=== PATIENT | female | born 1955 | race Caucasian/White ===

== ENCOUNTER → 2016-07-29 | Outpatient (CLI) | payer BC, OTHER ==
[~2016-07-29] MED LIST: FISH5CAP PO; GABA-279 PO; GABA-282 PO; IBUP800T23 PO; IMIT100T PO; LIPI10TA PO; MULT1TAB9 PO; PERC5TAB6 PO; TRAM50TA2 PO; VITA50TA43 PO
--- NOTE | 2016-08-03 18:33 | SLEEPCENT ---
DATE OF PROCEDURE: 07/29/2016 ORDERED BY: Chela Best INTERPRETATION: Nocturnal polysomnography was performed due to concern for the obstructive sleep apnea syndrome in this patient with a history of excessive daytime somnolence. 8 hours and 44 minutes of data were reviewed. There were 415 minutes of sleep identified. Sleep latency was short at 6.5 minutes. Rapid eye movement (REM) latency was short at 57 minutes. Sleep architecture showed fragmentation from respiratory events. Overall sleep efficiency improved after interventions to 81%. The patient's electrocardiogram (EKG) showed a sinus rhythm with an average heart rate of 54 beats per minute. Electroencephalogram (EEG) showed mild coarsening in background, otherwise normal wave forms for wake and sleep. There were 98 respiratory events identified of 10 seconds in duration or greater for an apnea-hypopnea index of 14.2. The events were associated with oxygen desaturations into the 70's. Having clearly establish the presence of obstructive sleep apnea syndrome, testing was stopped shortly after midnight for the application of pressure therapy. The patient was fit with a ResMed Quattro full face mask of extra small size. 4 cm of water pressure were applied to the circuit and the lights were extinguished. Throughout the remaining portion of resting pressure titration was preformed to an optimal pressure of +8, CPAP tolerance was good. The remaining measures of sleep physiology were normal. IMPRESSION: Obstructive sleep apnea syndrome (G47.33). Apnea-hypopnea index of 14.2. RECOMMENDATIONS: Nightly use of pressure therapy 8 cm of water.
== END ==
LOC: M SLEEP 20:00
PROVIDERS: ATTEND Nurse Practitioner Adult Health
DX: G47.30 Sleep apnea, unspecified (principal)

== ENCOUNTER → 2016-09-18 | Outpatient (CLI) | payer BC, OTHER ==
[~2016-09-18] MED LIST changes: +IBUP1TAB7 PO; -IBUP800T23 PO; +PERC5TAB12 PO; -PERC5TAB6 PO
[2016-09-18 18:34] LABS: ANION GAP 7 MEQ/L (8-16); BLOOD UREA NITROGEN 19 MG/DL (7-18); CALCIUM LEVEL 8.8 MG/DL (8.5-10.1); CARBON DIOXIDE LEVEL 31 MEQ/L (21-32); CHLORIDE LEVEL 106 MEQ/L (98-107); CHOLESTEROL LEVEL 175 MG/DL (<200); CREATININE FOR GFR 0.82 MG/DL (0.55-1.02); GLOMERULAR FILTRATION RATE > 60.0 (>51); GLUCOSE, FASTING 103 MG/DL (70-105); POTASSIUM SERUM 4.2 MEQ/L (3.5-5.1); SODIUM LEVEL 144 MEQ/L (136-145); TRIGLYCERIDES LEVEL 127 MG/DL (<150)
== END ==
LOC: M ADAMS 08:50
PROVIDERS: ATTEND Internal Medicine
DX: I87.2 Venous insufficiency (chronic) (peripheral) (principal); I10 Essential (primary) hypertension

== ENCOUNTER → 2016-10-07 | Outpatient (CLI) | payer BC, OTHER ==
--- NOTE | 2016-10-07 13:12 | REPMRS ---
Patient History The patient states she has not had a clinical breast exam in over a year. Patient is postmenopausal and has history of basal cell skin cancer at age 50. Family history of colorectal cancer in maternal grandfather at age 50 or over, breast cancer in 2 paternal aunts at age 50 or over, breast cancer in maternal grandmother at age 50 or over, and colorectal cancer in paternal uncle at age 50 or over. Benign excisional biopsy of the left breast, 1970. Digital Woman Screen Mammo: October 07, 2016 - Exam #: [id number] Bilateral CC and MLO view(s) were taken. Technologist: Sil Da Silva, Technologist Prior study comparison: November 19, 2014, digital woman screen mammo performed at [facility] to [facility]. April 08, 2013, digital woman screen mammo performed at [facility] to [facility]. FINDINGS: The breast tissue is heterogeneously dense. This may lower the sensitivity of mammography. There has been no change in the appearance of the mammogram from the prior studies. There is a moderate amount of residual fibroglandular tissue which is fairly symmetric. There is no interval development of dominant mass, areas of architectural distortion, or clustered microcalcification typical of malignancy. ASSESSMENT: BI-RADS/ACR category 1 mammogram. Negative. Recommendation Routine screening mammogram in 1 year (for women over age 40). This mammogram was interpreted with the aid of an FDA-approved computer-aided dectection system. Electronically Signed By: Lupillo Hadley MD 10/07/16 [id number]
== END ==
LOC: M WHC 11:17
PROVIDERS: ATTEND Internal Medicine
DX: Z12.31 Encounter for screening mammogram for malignant neoplasm of breast (principal)

== ENCOUNTER → 2017-01-24 | Outpatient (CLI) | payer BC, OTHER ==
--- NOTE | 2017-01-24 09:05 | REP ---
MAXILLOFACIAL CT WITHOUT CONTRAST: HISTORY: Chronic maxillary sinusitis. The sinuses are clear. The osteomeatal units are patent. The middle and inferior nasal turbinates are partially paradoxical. There is melani bullosa of the right middle nasal turbinate. There is mild deviation of the nasal septum to the left. A defect is present in the inferior nasal septum. The cribriform plate, medial vera of the orbits, and optic canals are intact. The carotid canals form a segment of the posterolateral vera of the sphenoid sinus. IMPRESSION: There is no acute or chronic sinusitis. Signed by Mark Hills MD 01/24/2017 09:08 A
== END ==
LOC: M RAD 08:13
PROVIDERS: ATTEND Specialist
DX: J32.0 Chronic maxillary sinusitis (principal)

== ENCOUNTER → 2017-07-02 | Outpatient (CLI) | payer BC, OTHER ==
[2017-07-02 17:48] LABS: BASO % 0.6 % (0.0-1.0); EOS # 0.1 10^3/uL (0.0-0.50); HEMATOCRIT 41.9 % (36.0-47.0); HEMOGLOBIN 13.5 g/dl (12.0-15.5); IMMATURE GRANULOCYTE % 0.2 % (0-3.0); LYMPH # 1.5 10^3/uL (1.5-4.5); LYMPH % 30.7 % (24.0-44.0); MEAN CORPUSCULAR HEMOGLOBIN 29.6 pg (27.0-33.0); MEAN CORPUSCULAR HGB CONC 32.2 g/dl (32.0-36.5); MEAN CORPUSCULAR VOLUME 91.9 fl (80.0-96.0); MONO # 0.6 10^3/uL (0.0-0.8); MONO % 11.2 % (0.0-5.0); NEUTROPHILS # 2.8 10^3/uL (1.8-7.7); NEUTROPHILS % 55.3 % (36.0-66.0); PLATELET COUNT, AUTOMATED 250 10^3/uL (150-450); RED BLOOD COUNT 4.56 10^6/uL (4.00-5.40); RED CELL DISTRIBUTION WIDTH 13.2 % (11.5-14.5)
[2017-07-02 18:09] LABS: ALBUMIN/GLOBULIN RATIO 1.29 (1.00-1.93); ALKALINE PHOSPHATASE 81 U/L (45-117); ALT/SGPT 36 U/L (12-78); ANION GAP 6 MEQ/L (8-16); AST/SGOT 24 U/L (7-37); BLOOD UREA NITROGEN 21 MG/DL (7-18); CALCIUM LEVEL 8.8 MG/DL (8.8-10.2); CARBON DIOXIDE LEVEL 29 MEQ/L (21-32); CHLORIDE LEVEL 110 MEQ/L (98-107); CHOLESTEROL LEVEL 183 MG/DL (<200); CHOLESTEROL RISK RATIO 3.734 (<5); CREATININE FOR GFR 0.82 MG/DL (0.55-1.30); GLOMERULAR FILTRATION RATE > 60.0 (>45); GLUCOSE, FASTING 113 MG/DL (70-100); HDL CHOLESTEROL 49 MG/DL (>40); LDL CHOLESTEROL 112.6 MG/DL (<100); NON-HDL-C 134 MG/DL; POTASSIUM SERUM 4.6 MEQ/L (3.5-5.1); SODIUM LEVEL 145 MEQ/L (136-145); TOTAL PROTEIN 7.1 GM/DL (6.4-8.2); TRIGLYCERIDES LEVEL 107 MG/DL (<150)
== END ==
LOC: M ADAMS 08:11
DX: I10 Essential (primary) hypertension (principal); E78.5 Hyperlipidemia, unspecified
CPT/HCPCS: 80053

== ENCOUNTER → 2017-09-11 | Outpatient (REF) | payer BC, OTHER ==
[2017-09-11 23:07] LABS: CHLAMYDIA DNA AMPLIFICATION NEGATIVE (NEGATIVE); GC DNA AMPLIFICATION NEGATIVE (NEGATIVE)
== END ==
LOC: M SFHCLERA 18:25
DX: N30.00 Acute cystitis without hematuria (principal)
CPT/HCPCS: 87086

== ENCOUNTER → 2017-12-09 | Outpatient (REF) | payer BC, OTHER ==
[2017-12-09 20:32] LABS: APPEARANCE, URINE HAZY (CLEAR); BACTERIA, URINE AUTO 1+ (NEGATIVE); BILIRUBIN, URINE AUTO NEGATIVE (NEGATIVE); BLOOD, URINE BLOOD 2+ (NEGATIVE); COLOR, URINE YELLOW (YELLOW); GLUCOSE, URINE (UA) AUTO NEGATIVE (NEGATIVE); KETONE, URINE AUTO NEGATIVE (NEGATIVE); LEUKOCYTE ESTERASE, URINE AUTO 1+ (NEGATIVE); MUCUS, URINE SMALL (NEGATIVE); NITRITE, URINE AUTO NEGATIVE (NEGATIVE); PROTEIN, URINE AUTO 1+ mg/dL (NEGATIVE); RBC, URINE AUTO 141 /HPF (0-3); SPECIFIC GRAVITY URINE AUTO 1.016 (1.002-1.035); SQUAMOUS EPITHELIAL CELL UR AU 1 /HPF (0-6); TRANSITIONAL EPITHELIAL AUTO 1 /HPF; UROBILINOGEN, URINE AUTO 0.2 mg/dL (0.0-2.0); WBC, URINE AUTO 63 /HPF (0-3)
== END ==
LOC: M LAB REF 16:33
DX: N39.0 Urinary tract infection, site not specified (principal)
CPT/HCPCS: 81001

== ENCOUNTER → 2017-12-20 | Outpatient (CLI) | payer BC, OTHER | LOC: M WHC 14:59 | DX: Z12.31 Encounter for screening mammogram for malignant neoplasm of breast (principal); N60.31 Fibrosclerosis of right breast; N60.32 Fibrosclerosis of left breast | CPT/HCPCS: 77067 ==

== ENCOUNTER → 2018-07-18 | Outpatient (REF) | payer BC, OTHER ==
[~2018-07-18] MED LIST changes: +GABA-1171 PO; -GABA-279 PO; -GABA-282 PO; +GABA-843 PO
[2018-07-18 21:25] LABS: APPEARANCE, URINE CLOUDY (CLEAR); BACTERIA, URINE AUTO NEGATIVE (NEGATIVE); BILIRUBIN, URINE AUTO NEGATIVE (NEGATIVE); BLOOD, URINE BLOOD 3+ (NEGATIVE); CALCIUM OXALATE CRYSTALS SMALL; COLOR, URINE AMBER (YELLOW); GLUCOSE, URINE (UA) AUTO NEGATIVE (NEGATIVE); KETONE, URINE AUTO NEGATIVE (NEGATIVE); LEUKOCYTE ESTERASE, URINE AUTO 2+ (NEGATIVE); MUCUS, URINE SMALL (NEGATIVE); NITRITE, URINE AUTO NEGATIVE (NEGATIVE); PROTEIN, URINE AUTO 2+ mg/dL (NEGATIVE); RBC, URINE AUTO TNTC /HPF (0-3); SPECIFIC GRAVITY URINE AUTO 1.026 (1.002-1.035); SQUAMOUS EPITHELIAL CELL UR AU 0 /HPF (0-6); UROBILINOGEN, URINE AUTO 0.2 mg/dL (0.0-2.0); WBC, URINE AUTO TNTC /HPF (0-3)
== END ==
LOC: M LAB REF 10:48
PROVIDERS: ATTEND Physician Assistant
DX: N39.0 Urinary tract infection, site not specified (principal)

== ENCOUNTER 2018-11-12 07:38 | Day surgery (SDC) | payer BC, OTHER ==
[~2018-11-12] VITALS: Ht 170.2 cm; Wt 88.6 kg
[~2018-11-12 07:38] MED LIST changes: +CO Q10CA PO; +LOSA50TA88 PO; +MAGN400C2 PO; +PHEN15CA PO; +TIZA2CAP PO; +VIAC1CHW PO
[2018-11-12] MEDS: NS 1,000 ML IV ONE (08:30)
[2018-11-12] MEDS ORDERED: LIDOCAINE 2% INJ 100 MG/5 ML SDV (FOR ANES.) As Ordered ONE (08:56)
[2018-11-12] MEDS ORDERED: PROPOFOL 200 MG/20 ML VIAL As Ordered ONE (08:56)
--- NOTE | 2018-11-12 09:24 | ROOR ---
Patient Name: Vibha Hernandez Procedure Date: 11/12/2018 8:58 AM Date of : 1955 Age: 63 Room: [facility] Gender: Female Note Status: Finalized Procedure: Total Colonoscopy to Cecum + Biopsy Polypectomy + Hemoclip Indications: Screening for colorectal malignant neoplasm, Last colonoscopy 10 years ago Providers: Jacoby Viveros MD Referring MD: Niurka Miles DO Requesting Provider: Medicines: Monitored Anesthesia Care Complications: No immediate complications. Procedure: Pre-Anesthesia Assessment: - The heart rate, respiratory rate, oxygen saturations, blood pressure, adequacy of pulmonary ventilation, and response to care were monitored throughout the procedure. The Colonoscope was introduced through the anus and advanced to the cecum, identified by appendiceal orifice and ileocecal valve. The colonoscopy was performed without difficulty. The patient tolerated the procedure well. The quality of the bowel preparation was excellent. Findings: The perianal and digital rectal examinations were normal. Non-bleeding internal hemorrhoids were found during retroflexion. The hemorrhoids were small and Grade I (internal hemorrhoids that do not prolapse). Multiple small and large-mouthed diverticula were found in the recto-sigmoid colon, sigmoid colon and descending colon. A diminutive polyp was found in the cecum. The polyp was sessile. The polyp was removed with a jumbo cold forceps. Resection and retrieval were complete. A small polyp was found in the ascending colon. The polyp was sessile. The polyp was removed with a jumbo cold forceps. Resection and retrieval were complete. To prevent bleeding after the polypectomy, one hemostatic clip was successfully placed (MR conditional). There was no bleeding at the end of the procedure. The exam was otherwise without abnormality on direct and retroflexion views. Impression: - Non-bleeding internal hemorrhoids. - Diverticulosis in the recto-sigmoid colon, in the sigmoid colon and in the descending colon. - One diminutive polyp in the cecum, removed with a jumbo cold forceps. Resected and retrieved. - One small polyp in the ascending colon, removed with a jumbo cold forceps. Resected and retrieved. Clip (MR conditional) was placed. - The examination was otherwise normal on direct and retroflexion views. - The exam was otherwise normal to the cecum. Recommendation: - Patient has a contact number available for emergencies. The signs and symptoms of potential delayed complications were discussed with the patient. Return to normal activities tomorrow. Written discharge instructions were provided to the patient. - High fiber diet. - Discharge patient to home. - Continue present medications. - Await pathology results. - Telephone GI clinic for pathology results in 1 week. - Repeat colonoscopy for surveillance based on pathology results. - Return to referring physician. - The findings and recommendations were discussed with the patient's family. Jacoby Viveros MD Jacoby Viveros MD 11/12/2018 9:24:13 AM Electronically signed by Jacoby Viveros MD Number of Addenda: 0 Note Initiated On: 11/12/2018 8:58 AM Estimated Blood Loss: Estimated blood loss: none.
[2018-11-12 09:46] VITALS: BP 130/75
== END 2018-11-12 09:48 | disposition home or self-care (01) ==
LOC: M OPP 07:38
PROVIDERS: ATTEND Internal Medicine Gastroenterology
DX: Z12.11 Encounter for screening for malignant neoplasm of colon (principal); K64.0 First degree hemorrhoids; D12.0 Benign neoplasm of cecum; D12.2 Benign neoplasm of ascending colon; K57.30 Diverticulosis of large intestine without perforation or abscess without bleeding; Z79.899 Other long term (current) drug therapy; Z88.2 Allergy status to sulfonamides

== ENCOUNTER → 2018-12-13 | Outpatient (CLI) | payer BC, OTHER ==
--- NOTE | 2018-12-18 15:10 | DEXA ---
AP SPINE L1 - L4 1.396 1.6 3.0 LT FEMUR TOTAL 0.999 -0.1 1.0 LT NECK 0.942 -0.7 0.6 RT FEMUR TOTAL 1.066 0.5 1.5 RT NECK 0.914 -0.9 0.4 TOTAL BODY TOTAL L1-L3 1.372 1.5 2.9 COMMENTS: Normal bone densitometry of the spine and hips. FOLLOW-UP: Recommendation for the next bone density exam: 5 years. DELANEYD
== END ==
LOC: M WHC 15:44
PROVIDERS: ATTEND Internal Medicine
DX: M85.80 Other specified disorders of bone density and structure, unspecified site (principal)

== ENCOUNTER → 2019-03-02 | Outpatient (CLI) | payer BC, OTHER ==
[2019-03-02 13:17] LABS: BLOOD UREA NITROGEN 18 MG/DL (7-18); CALCIUM LEVEL 8.8 MG/DL (8.8-10.2); CARBON DIOXIDE LEVEL 32 MEQ/L (21-32); CHLORIDE LEVEL 107 MEQ/L (98-107); CREATININE FOR GFR 0.75 MG/DL (0.55-1.30); GLOMERULAR FILTRATION RATE > 60.0 (>45); GLUCOSE, FASTING 89 MG/DL (70-100); POTASSIUM SERUM 4.3 MEQ/L (3.5-5.1); SODIUM LEVEL 144 MEQ/L (136-145)
[2019-03-04 13:08] LABS: TOTAL 25(OH) VITAMIN D 29.5 NG/ML (30.0-100.0)
== END ==
LOC: M ADAMS 08:58
PROVIDERS: ATTEND Internal Medicine
DX: I10 Essential (primary) hypertension (principal); E55.9 Vitamin D deficiency, unspecified

== ENCOUNTER → 2019-04-02 | Outpatient (REF) | payer BC, OTHER ==
[2019-04-02 19:27] LABS: BLOOD UREA NITROGEN 19 MG/DL (7-18); CREATININE FOR GFR 0.79 MG/DL (0.55-1.30); GLOMERULAR FILTRATION RATE > 60.0 (>45)
== END ==
LOC: M LABDRWAD 18:54
PROVIDERS: ATTEND Pain Medicine Interventional Pain Medicine
DX: Z01.812 Encounter for preprocedural laboratory examination (principal)

== ENCOUNTER → 2019-07-12 | Outpatient (CLI) | payer BC, OTHER ==
--- NOTE | 2019-07-12 15:49 | REP ---
REASON: Back pain, followup. COMPARISON: Limited three view exam of 08/07/2018. Three views of the spine were obtained in the same fashion as the prior exam. The posterior fixator seen at the L4-5 level is unchanged. There is no change in appearance of the facet joints. There is no change in vertebral body height or alignment. IMPRESSION: No change. Electronically Signed by Tyson Wells DO 07/12/2019 03:50 P
== END ==
LOC: M RAD 15:06
PROVIDERS: ATTEND Physician Assistant
DX: M48.062 Spinal stenosis, lumbar region with neurogenic claudication (principal)

== ENCOUNTER → 2019-09-01 | Outpatient (CLI) | payer BC, OTHER ==
[2019-09-01 09:04] LABS: BASO % 0.4 % (0.0-1.0); EOS # 0.1 10^3/uL (0.0-0.5); EOS % 1.2 % (0.0-3.0); HEMATOCRIT 39.1 % (36.0-47.0); HEMOGLOBIN 12.6 g/dl (12.0-15.5); LYMPH # 1.4 10^3/uL (1.5-5.0); LYMPH % 26.9 % (24.0-44.0); MEAN CORPUSCULAR HEMOGLOBIN 30.1 pg (27.0-33.0); MEAN CORPUSCULAR HGB CONC 32.2 g/dl (32.0-36.5); MEAN CORPUSCULAR VOLUME 93.5 fl (80.0-96.0); MONO # 0.6 10^3/uL (0.0-0.8); MONO % 11.7 % (0.0-5.0); PLATELET COUNT, AUTOMATED 252 10^3/uL (150-450); RED BLOOD COUNT 4.18 10^6/uL (4.00-5.40); WHITE BLOOD COUNT 5.1 10^3/uL (4.0-10.0)
[2019-09-01 09:34] LABS: ALBUMIN 3.6 GM/DL (3.2-5.2); ALT/SGPT 28 U/L (12-78); BILIRUBIN,TOTAL 1.3 MG/DL (0.2-1.0); BLOOD UREA NITROGEN 21 MG/DL (7-18); CALCIUM LEVEL 8.8 MG/DL (8.8-10.2); CARBON DIOXIDE LEVEL 31 MEQ/L (21-32); CHLORIDE LEVEL 108 MEQ/L (98-107); CHOLESTEROL LEVEL 176 MG/DL (<200); CREATININE FOR GFR 0.86 MG/DL (0.55-1.30); GLOMERULAR FILTRATION RATE > 60.0 (>45); GLUCOSE, FASTING 104 MG/DL (70-100); HDL CHOLESTEROL 50 MG/DL (>40); LDL CHOLESTEROL 111 MG/DL (<100); NON-HDL-C 126 MG/DL; POTASSIUM SERUM 4.1 MEQ/L (3.5-5.1); SODIUM LEVEL 143 MEQ/L (136-145); TOTAL PROTEIN 6.8 GM/DL (6.4-8.2); TRIGLYCERIDES LEVEL 77 MG/DL (<150)
== END ==
LOC: M LAB 08:34
PROVIDERS: ATTEND Internal Medicine
DX: I10 Essential (primary) hypertension (principal); E78.5 Hyperlipidemia, unspecified

== ENCOUNTER → 2019-10-10 | Outpatient (CLI) | payer BC, OTHER ==
[~2019-10-10] MED LIST changes: +ISOVUE-300 61% 50ML VIAL As Ordered ONE; +LIDOCAINE 1% MDV 20ML VIAL As Ordered ONE; +TRIAMCINOLONE ACETONIDE SUSP 40 MG/ML VIAL (J3301) As Ordered ONE
--- NOTE | 2019-11-13 09:37 | REP ---
LEFT HIP INJECTION The procedure was performed under the direct supervision of Dr. Pena. The benefits and risks including, but not limited to pain, infection, bleeding, and anaphylaxis were explained to the patient and informed consent was obtained. The left femoral neck was localized using fluoroscopic guidance. The skin was prepped and draped in a sterile fashion. 1% Lidocaine was used as a local anesthetic. Using fluoroscopic guidance, a 22-gauge spinal needle was inserted and advanced to the femoral neck. 0.5 mL of Isovue-300 was injected to verify placement. 3 mL of a solution containing 2 mL of 1% Lidocaine and 1 mL of Kenalog 40 mg was injected. The needle was then removed. The patient tolerated the procedure well and there were no immediate complications. Less than 6 seconds of fluoroscopy time was utilized for this procedure. SERENA
== END ==
LOC: M RADPRO 14:26
PROVIDERS: ATTEND Orthopaedic Surgery Sports Medicine
DX: M16.12 Unilateral primary osteoarthritis, left hip (principal)
CPT/HCPCS: 20610; 77002; J3301; Q9967

== ENCOUNTER → 2019-10-17 | Outpatient (REF) | payer BC, OTHER ==
[~2019-10-17] MED LIST changes: -ISOVUE-300 61% 50ML VIAL As Ordered ONE; -LIDOCAINE 1% MDV 20ML VIAL As Ordered ONE; -TRIAMCINOLONE ACETONIDE SUSP 40 MG/ML VIAL (J3301) As Ordered ONE
== END ==
LOC: M LAB REF 09:47
PROVIDERS: ATTEND Surgery
DX: D17.23 Benign lipomatous neoplasm of skin and subcutaneous tissue of right leg (principal)

== ENCOUNTER → 2020-01-07 | Outpatient (REF) | payer BC, OTHER | LOC: M SFHCWAGY 17:07 | PROVIDERS: ATTEND Nurse Practitioner Family | DX: Z12.4 Encounter for screening for malignant neoplasm of cervix (principal) | CPT/HCPCS: 87624; G0123 ==

== ENCOUNTER → 2020-01-07 | Outpatient (CLI) | payer BC, OTHER ==
--- NOTE | 2020-01-07 17:07 | REPMRS ---
Patient History The patient states she had a clinical breast exam in 01/09 Family history of breast cancer at age 50 or over in maternal grandmother, colorectal cancer at age 50 or over in maternal grandfather, breast cancer at age 50 or over in paternal aunt, breast cancer at age 50 or over in paternal aunt, colorectal cancer at age 50 or over in paternal uncle, breast cancer at age 50 or over in maternal aunt. Benign excisional biopsy of the left breast, 1970. No Hormone Replacement Therapy 3D TOMOSYNTHESIS WAS PERFORMED. [email or web address] breast density b. Digital Woman Screen Mammo: January 07, 2020 - Exam #: [id number] Bilateral CC and MLO view(s) were taken. Technologist: Gabrielle Bauer, Technologist Prior study comparison: December 20, 2017, bilateral digital woman screen mammo performed at [facility]. October 07, 2016, bilateral digital woman screen mammo performed at [facility]. FINDINGS: The breast tissue is heterogeneously dense. This may lower the sensitivity of mammography. There has been no change in the appearance of the mammogram from the prior studies. There is a moderate amount of residual fibroglandular tissue which is fairly symmetric. There is no interval development of dominant mass, areas of architectural distortion, or clustered microcalcification typical of malignancy. Assessment: BI-RADS/ACR category 1 mammogram. Negative Mammogram. Recommendation Routine screening mammogram in 1 year (for women over age 40). This mammogram was interpreted with the aid of an FDA-approved computer-aided dectection system. THE LIFETIME RISK OF BREAST CANCER IS 22.0%, THEREFORE SUPPLEMENTAL SCREENING MRI OF THE BREASTS IS RECOMMENDED IN 6 MONTHS. Electronically Signed By: Lupillo Hadley MD 01/07/20 [id number]
== END ==
LOC: M WHC 14:31
PROVIDERS: ATTEND Nurse Practitioner Family
DX: Z12.31 Encounter for screening mammogram for malignant neoplasm of breast (principal)

== ENCOUNTER → 2020-03-07 | Outpatient (CLI) | payer BC, OTHER ==
[~2020-03-07] MED LIST changes: +GABA-282 PO; -GABA-843 PO
[2020-03-07 09:24] LABS: BASO % 0.5 % (0.0-1.0); EOS # 0.1 10^3/uL (0.0-0.5); EOS % 1.1 % (0.0-3.0); HEMATOCRIT 43.2 % (36.0-47.0); HEMOGLOBIN 13.3 g/dl (12.0-15.5); LYMPH # 1.4 10^3/uL (1.5-5.0); LYMPH % 24.9 % (24.0-44.0); MEAN CORPUSCULAR HGB CONC 30.8 g/dl (32.0-36.5); MEAN CORPUSCULAR VOLUME 94.1 fl (80.0-96.0); MONO # 0.6 10^3/uL (0.0-0.8); MONO % 9.9 % (0.0-5.0); NEUTROPHILS # 3.5 10^3/uL (1.5-8.5); NEUTROPHILS % 63.4 % (36.0-66.0); PLATELET COUNT, AUTOMATED 263 10^3/uL (150-450); RED BLOOD COUNT 4.59 10^6/uL (4.00-5.40); WHITE BLOOD COUNT 5.6 10^3/uL (4.0-10.0)
[2020-03-07 10:00] LABS: ALBUMIN 3.8 GM/DL (3.2-5.2); ALT/SGPT 34 U/L (12-78); BILIRUBIN,TOTAL 1.3 MG/DL (0.2-1.0); BLOOD UREA NITROGEN 20 MG/DL (7-18); CALCIUM LEVEL 8.6 MG/DL (8.8-10.2); CARBON DIOXIDE LEVEL 29 MEQ/L (21-32); CHLORIDE LEVEL 109 MEQ/L (98-107); CREATININE FOR GFR 0.82 MG/DL (0.55-1.30); GLOMERULAR FILTRATION RATE > 60.0 (>45); GLUCOSE, FASTING 109 MG/DL (70-100); POTASSIUM SERUM 4.4 MEQ/L (3.5-5.1); SODIUM LEVEL 143 MEQ/L (136-145); TOTAL PROTEIN 6.8 GM/DL (6.4-8.2)
== END ==
LOC: M LAB 08:52
PROVIDERS: ATTEND Internal Medicine
DX: D50.9 Iron deficiency anemia, unspecified (principal); I10 Essential (primary) hypertension

== ENCOUNTER → 2020-05-19 | Outpatient (REF) | payer BC, OTHER ==
[2020-05-19 21:41] LABS: APPEARANCE, URINE HAZY (CLEAR); BACTERIA, URINE AUTO NEGATIVE (NEGATIVE); BILIRUBIN, URINE AUTO NEGATIVE (NEGATIVE); BLOOD, URINE BLOOD NEGATIVE (NEGATIVE); COLOR, URINE YELLOW (YELLOW); GLUCOSE, URINE (UA) AUTO NEGATIVE (NEGATIVE); KETONE, URINE AUTO NEGATIVE (NEGATIVE); LEUKOCYTE ESTERASE, URINE AUTO 3+ (NEGATIVE); MUCUS, URINE SMALL (NEGATIVE); NITRITE, URINE AUTO NEGATIVE (NEGATIVE); PROTEIN, URINE AUTO NEGATIVE (NEGATIVE); RBC, URINE AUTO 2 /HPF (0-3); SPECIFIC GRAVITY URINE AUTO 1.024 (1.002-1.035); SQUAMOUS EPITHELIAL CELL UR AU 2 /HPF (0-6); UROBILINOGEN, URINE AUTO 0.2 mg/dL (0.0-2.0); WBC, URINE AUTO 19 /HPF (0-3)
== END ==
LOC: M LAB REF 21:08
PROVIDERS: ATTEND Physician Assistant
DX: N39.0 Urinary tract infection, site not specified (principal)

== ENCOUNTER → 2020-09-08 | Outpatient (REF) | payer BC, OTHER | LOC: M LAB REF 19:02 | PROVIDERS: ATTEND Internal Medicine | DX: M25.50 Pain in unspecified joint (principal) ==

== ENCOUNTER → 2020-11-14 | Outpatient (REF) | payer BC, OTHER ==
[2020-11-14 19:30] LABS: APPEARANCE, URINE CLEAR (CLEAR); BACTERIA, URINE AUTO NEGATIVE (NEGATIVE); BILIRUBIN, URINE AUTO NEGATIVE (NEGATIVE); BLOOD, URINE BLOOD NEGATIVE (NEGATIVE); COLOR, URINE YELLOW (YELLOW); GLUCOSE, URINE (UA) AUTO NEGATIVE (NEGATIVE); KETONE, URINE AUTO NEGATIVE (NEGATIVE); LEUKOCYTE ESTERASE, URINE AUTO NEGATIVE (NEGATIVE); MUCUS, URINE SMALL (NEGATIVE); NITRITE, URINE AUTO NEGATIVE (NEGATIVE); PROTEIN, URINE AUTO NEGATIVE (NEGATIVE); RBC, URINE AUTO 1 /HPF (0-3); SPECIFIC GRAVITY URINE AUTO 1.015 (1.002-1.035); SQUAMOUS EPITHELIAL CELL UR AU 0 /HPF (0-6); UROBILINOGEN, URINE AUTO 0.2 mg/dL (0.0-2.0); WBC, URINE AUTO 2 /HPF (0-3)
== END ==
LOC: M LAB REF 19:14
PROVIDERS: ATTEND Physician Assistant Medical
DX: R30.0 Dysuria (principal)

== ENCOUNTER 2020-12-07 12:14 | Emergency (ER) | payer BC, OTHER ==
[~2020-12-07] VITALS: Ht 170.2 cm; Wt 95.0 kg
[2020-12-07] MEDS ORDERED: HYDROMORPHONE HCL 0.5 MG/ 0.5 ML SYRINGE (J1170 PER 1) IV ONE (12:50)
[2020-12-07] MEDS ORDERED: NS 1,000 ML IV SCH (13:45)
[2020-12-07] MEDS ORDERED: propofoL 200 MG/20 ML VIAL IV.PROC PRN (13:45)
[2020-12-07] MEDS ORDERED: KETAMINE HCL 200 MG/20 ML VIAL IV ONE (13:45)
[2020-12-07] MEDS ORDERED: ONDANSETRON 4MG/2ML VIAL IV ONE (13:50)
--- OUTSIDE RECORDS SUMMARY | 2020-12-07 13:50 | CCD ---
Author Author [facility] Organization [facility] Address Unknown Phone Unavailable Care Team Providers Care Financial Services Professional Name Role Phone Pecorella, T Jose PA Unavailable Unavailable Pecorella, T Jose PA Unavailable Unavailable Pecorella, T Jose PA Unavailable Unavailable Pecorella, T Jose PA Unavailable Unavailable Pecorella, T Jose PA Unavailable Unavailable Pecorella, T Jose PA Unavailable Unavailable Pecorella, T Jose PA Unavailable Unavailable Pecorella, T Jose PA Unavailable Unavailable Pecorella, T Jose PA Unavailable Unavailable Pecorella, T Jose PA Unavailable Unavailable Pecorella, T Jose PA Unavailable Unavailable Pecorella, T Jose PA Unavailable Unavailable Pecorella, T Jose PA Unavailable Unavailable Pecorella, T Jose PA Unavailable Unavailable Pecorella, T Jose PA Unavailable Unavailable Pecorella, T Jose PA Unavailable Unavailable Pecorella, T Jose PA Unavailable Unavailable Pecorella, T Jose PA Unavailable Unavailable Pecorella, T Jose PA Unavailable Unavailable Pecorella, T Jose PA Unavailable Unavailable Pecorella, T Jose PA Unavailable Unavailable TYRONE BEASLEY MD Unavailable Unavailable TYRONE BEASLEY MD Unavailable Unavailable TYRONE BEASLEY MD Unavailable Unavailable BEASLEY, TYRONE MD Unavailable Unavailable BEASLEY, TYRONE MD Unavailable Unavailable BEASLEY, TYRONE MD Unavailable Unavailable BEASLEY, TYRONE MD Unavailable Unavailable BEASLEY, TYRONE MD Unavailable Unavailable BEASLEY, TYRONE MD Unavailable Unavailable BEASLEY, TYRONE MD Unavailable Unavailable BEASLEY, TYRONE MD Unavailable Unavailable BEASLEY, TYRONE MD Unavailable Unavailable BEASLEY, TYRONE MD Unavailable Unavailable BEASLEY, TYRONE MD Unavailable Unavailable BESALEY, TYRONE MD Unavailable Unavailable BEASLEY, TYRONE MD Unavailable Unavailable BEASLEY, TYRONE MD Unavailable Unavailable BEASLEY, TYRONE MD Unavailable Unavailable BEASLEY, TYRONE MD Unavailable Unavailable BEASLEY, TYRONE MD Unavailable Unavailable BEASLEY, TYRONE MD Unavailable Unavailable BEASLEY, TYRONE MD Unavailable Unavailable BEASLEY, TYRONE MD Unavailable Unavailable BEASLEY, TYRONE MD Unavailable Unavailable BEASLEY, TYRONE MD Unavailable Unavailable BEASLEY, TYRONE MD Unavailable Unavailable BEASLEY, TYRONE MD Unavailable Unavailable BEASLEY, TYRONE MD Unavailable Unavailable BEASLEY, TYRONE MD Unavailable Unavailable BEASLEY, TYRONE MD Unavailable Unavailable BEASLEY, TYRONE MD Unavailable Unavailable BEASLEY, TYRONE MD Unavailable Unavailable BEASLEY, TYRONE MD Unavailable Unavailable BEASLEY, TYORNE MD Unavailable Unavailable BEASLEY, TYRONE MD Unavailable Unavailable BEASLEY, TYRONE MD Unavailable Unavailable BEASLEY, TYRONE MD Unavailable Unavailable BEASLEY, TYRONE MD Unavailable Unavailable BEASLEY, TYRONE MD Unavailable Unavailable BEASLEY, TYRONE MD Unavailable Unavailable BEASLEY, TYRONE MD Unavailable Unavailable BEASLEY, TYRONE MD Unavailable Unavailable BEASLEY, TYRONE MD Unavailable Unavailable BEASLEY, TYRONE MD Unavailable Unavailable BEASLEY, TYRONE MD Unavailable Unavailable BEASLEY, TYRONE MD Unavailable Unavailable BEASLEY, TYRONE MD Unavailable Unavailable BEASLEY, TYRONE MD Unavailable Unavailable BEASLEY, TYRONE MD Unavailable Unavailable BEASLEY, TYRONE MD Unavailable Unavailable BEASLEY, TYRONE MD Unavailable Unavailable BEASLEY, TYRONE MD Unavailable Unavailable BEASLEY, TYRONE MD Unavailable Unavailable BEASLEY, TYRONE MD Unavailable Unavailable BEASLEY, TYRONE MD Unavailable Unavailable BEASLEY, TYRONE MD Unavailable Unavailable BEASLEY, TYRONE MD Unavailable Unavailable BEASLEY, TYRONE MD Unavailable Unavailable BEASLEY, TYRONE MD Unavailable Unavailable BEASLEY, TYRONE MD Unavailable Unavailable BEASLEY, TYRONE MD Unavailable Unavailable BEASLEY, TYRONE MD Unavailable Unavailable BEASLEY, TYRONE MD Unavailable Unavailable BEASLEY, TYRONE MD Unavailable Unavailable BEASLEY, TYRONE MD Unavailable Unavailable BEASLEY, TYRONE MD Unavailable Unavailable BEASLEY, TYRONE MD Unavailable Unavailable BEASLEY, TYRNOE MD Unavailable Unavailable TYRONE BEASLEY MD Unavailable Unavailable TYRONE BEASLEY MD Unavailable Unavailable Mollison, Tamir Null MD Unavailable Unavailable Mollison, Tamir Null MD Unavailable Unavailable Mollison, Tamir Null MD Unavailable Unavailable Mollison, Tamir Null MD Unavailable Unavailable Mollison, Tamir Null MD Unavailable Unavailable Mollison, Tamir Null MD Unavailable Unavailable Mollison, Tamir Null MD Unavailable Unavailable Mollison, Tamir Null MD Unavailable Unavailable Mollison, Tamir Null MD Unavailable Unavailable Mollison, Tamir Null MD Unavailable Unavailable Mollison, Tamir Null MD Unavailable Unavailable Mollison, Tamir Null MD Unavailable Unavailable Mollison, Tamir Null MD Unavailable Unavailable Mollison, Tamir Null MD Unavailable Unavailable Mollison, Tamir Null MD Unavailable Unavailable Mollison, Tamir Null MD Unavailable Unavailable Mollison, Tamir Null MD Unavailable Unavailable Mollison, Tamir Null MD Unavailable Unavailable Mollison, Tamir Null MD Unavailable Unavailable Mollison, Tamir Null MD Unavailable Unavailable Mollison, Tamir Null MD Unavailable Unavailable Mollison, Tamir Null MD Unavailable Unavailable Mollison, Tamir Null MD Unavailable Unavailable Mollison, Tamir Null MD Unavailable Unavailable Mollison, Tamir Null MD Unavailable Unavailable Mollison, Tamir Null MD Unavailable Unavailable Mollison, Tamir Null MD Unavailable Unavailable Mollison, Tamir Null MD Unavailable Unavailable Mollison, Tamir Null MD Unavailable Unavailable Mollison, Tamir Null MD Unavailable Unavailable Jd, Niurka DO Unavailable Unavailable Jd, Niurka DO Unavailable Unavailable Jd, Niurka DO Unavailable Unavailable Jd, Niurka DO Unavailable Unavailable Jd, Niurka DO Unavailable Unavailable Jd, Niurka DO Unavailable Unavailable Jd, Niurka DO Unavailable Unavailable Jd, Niurka DO Unavailable Unavailable Jd, Niurka DO Unavailable Unavailable Jd, Niurka DO Unavailable Unavailable Jd, Niurka DO Unavailable Unavailable Jd, Niurka DO Unavailable Unavailable Jd, Niurka DO Unavailable Unavailable Jd, Niurka DO Unavailable Unavailable Jd, Niurka DO Unavailable Unavailable Jd, Niurka DO Unavailable Unavailable Jd, Niurka DO Unavailable Unavailable Jd, Niurka DO Unavailable Unavailable Jd, Niurka DO Unavailable Unavailable Jd, Niurka DO Unavailable Unavailable Jd, Niurka DO Unavailable Unavailable Jd, Niurka DO Unavailable Unavailable Jd, Niurka DO Unavailable Unavailable Jd, Niurka DO Unavailable Unavailable Jd, Niurka DO Unavailable Unavailable Jd, Niurka DO Unavailable Unavailable Jd, Niurka DO Unavailable Unavailable Jd, Niurka DO Unavailable Unavailable Jd, Niurka DO Unavailable Unavailable Jd, Niurka DO Unavailable Unavailable Jd, Niurka DO Unavailable Unavailable Jd, Niurka DO Unavailable Unavailable Jd, Niurka DO Unavailable Unavailable Jd, Niurka DO Unavailable Unavailable Jd, Niurka DO Unavailable Unavailable Jd, Niurka DO Unavailable Unavailable Jd, Niurka DO Unavailable Unavailable Jd, Niurka DO Unavailable Unavailable Jd, Niurka DO Unavailable Unavailable Jd, Niurka DO Unavailable Unavailable Jd, Niurka DO Unavailable Unavailable Jd, Niurka DO Unavailable Unavailable Jd, Niurka DO Unavailable Unavailable Jd, Niurka DO Unavailable Unavailable Jd, Niurka DO Unavailable Unavailable Jd, Niurka DO Unavailable Unavailable Jd, Niurka DO Unavailable Unavailable Jd, Niurka DO Unavailable Unavailable Jd, Niurka DO Unavailable Unavailable Jd, Niurka DO Unavailable Unavailable Jd, Niurka DO Unavailable Unavailable Jd, Niurka DO Unavailable Unavailable Jd, Niurka DO Unavailable Unavailable Jd, Niurka DO Unavailable Unavailable Jd, Niurka DO Unavailable Unavailable Jd, Niurka DO Unavailable Unavailable Jd, Niurka DO Unavailable Unavailable Jd, Niurka DO Unavailable Unavailable Jd, Niurka DO Unavailable Unavailable Jd, Niurka DO Unavailable Unavailable Jd, Niurka DO Unavailable Unavailable Jd, Niurka DO Unavailable Unavailable Jd, Niurka DO Unavailable Unavailable Jd, Niurka DO Unavailable Unavailable Jd, Niurka DO Unavailable Unavailable Jd, Niurka DO Unavailable Unavailable Jd, Niurka DO Unavailable Unavailable Jd, Niurka DO Unavailable Unavailable Jd, Niurka DO Unavailable Unavailable Jd, Niurka DO Unavailable Unavailable Jd, Niurka DO Unavailable Unavailable Jd, Niurka DO Unavailable Unavailable Jd, Niurka DO Unavailable Unavailable Jd, Niurka DO Unavailable Unavailable Demarche, J Elliott PA Unavailable Unavailable Demarche, J Elliott PA Unavailable Unavailable Demarche, J Elliott PA Unavailable Unavailable Demarche, J Elliott PA Unavailable Unavailable Demarche, J Elliott PA Unavailable Unavailable Demarche, J Elliott PA Unavailable Unavailable Demarche, J Elliott PA Unavailable Unavailable Demarche, J Elliott PA Unavailable Unavailable Demarche, J Elliott PA Unavailable Unavailable Demarche, J Elliott PA Unavailable Unavailable Demarche, J Elliott PA Unavailable Unavailable Demarche, J Elliott PA Unavailable Unavailable Demarche, J Elliott PA Unavailable Unavailable Demarche, J Elliott PA Unavailable Unavailable Demarche, J Elliott PA Unavailable Unavailable Demarche, J Elilott PA Unavailable Unavailable Demarche, J Elliott PA Unavailable Unavailable Demarche, J Elliott PA Unavailable Unavailable Demarche, J Elliott PA Unavailable Unavailable Demarche, J Elliott PA Unavailable Unavailable Demarche, J Elliott PA Unavailable Unavailable Demarche, J Elliott PA Unavailable Unavailable Demarche, J Elliott PA Unavailable Unavailable Demarche, J Elliott PA Unavailable Unavailable Demarche, J Elliott PA Unavailable Unavailable Demarche, J Elliott PA Unavailable Unavailable Demarche, J Elliott PA Unavailable Unavailable Demarche, J Elliott PA Unavailable Unavailable Demarche, J Elliott PA Unavailable Unavailable Demarche, J Elliott PA Unavailable Unavailable Demarche, J Elliott PA Unavailable Unavailable Fan, M Deepti PA Unavailable Unavailable Fan, M Deepti PA Unavailable Unavailable Fan, M Deepti PA Unavailable Unavailable Fan, M Deepti PA Unavailable Unavailable Fan, M Deepti PA Unavailable Unavailable Fan, M Deepti PA Unavailable Unavailable Fan, M Deepti PA Unavailable Unavailable Fan, M Deepti PA Unavailable Unavailable Fan, M Deepti PA Unavailable Unavailable Fan, M Deepti PA Unavailable Unavailable Fan, M Deepti PA Unavailable Unavailable Fan, M Deepti PA Unavailable Unavailable Fan, M Deepti PA Unavailable Unavailable Fan, M Deepti PA Unavailable Unavailable Fan, M Deepti PA Unavailable Unavailable Fan, M Deepti PA Unavailable Unavailable Fan, M Deepti PA Unavailable Unavailable Fan, M Deepti PA Unavailable Unavailable Fan, M Deepti PA Unavailable Unavailable Fan, M Deepti PA Unavailable Unavailable Fan, M Deepti PA Unavailable Unavailable Fan, M Deepti PA Unavailable Unavailable Fan, M Deepti PA Unavailable Unavailable Fan, M Deepti PA Unavailable Unavailable Fan, M Deepti PA Unavailable Unavailable Fan, M Deepti PA Unavailable Unavailable Fan, M Deepti PA Unavailable Unavailable Fan, M Deepti PA Unavailable Unavailable Afn, M Deepti PA Unavailable Unavailable Fan, M Deepti PA Unavailable Unavailable Fan, M Deepti PA Unavailable Unavailable Fan, M Deepti PA Unavailable Unavailable Fan, M Deepti PA Unavailable Unavailable Fan, M Deepti PA Unavailable Unavailable Fan, M Deepti PA Unavailable Unavailable Fan, M Deepti PA Unavailable Unavailable Fan, M Deepti PA Unavailable Unavailable Fan, M Deepti PA Unavailable Unavailable Fan, M Deepti PA Unavailable Unavailable Fan, M Deepti PA Unavailable Unavailable Fan, M Deepti PA Unavailable Unavailable Fan, M Deepti PA Unavailable Unavailable Fan, M Deepti PA Unavailable Unavailable Fan, M Deepti PA Unavailable Unavailable Fan, M Deepti PA Unavailable Unavailable Fan, M Deepti PA Unavailable Unavailable Ar Fan Unavailable Unavailable Ar Fan Unavailable Unavailable Ar Fan PA Unavailable Unavailable Jd, Niurka DO Unavailable Unavailable Jd, Niurka DO Unavailable Unavailable Jd, Niurka DO Unavailable Unavailable Jd, Niurka DO Unavailable Unavailable Jd, Niurka DO Unavailable Unavailable Jd, Niurka DO Unavailable Unavailable Jd, Niurka DO Unavailable Unavailable Jd, Niurka DO Unavailable Unavailable Jd, Niurka DO Unavailable Unavailable Jd, Niurka DO Unavailable Unavailable Jd, Niurka DO Unavailable Unavailable Jd, Niurka DO Unavailable Unavailable Jd, Niurka DO Unavailable Unavailable Jd, Niurka DO Unavailable Unavailable Jd, Niurka DO Unavailable Unavailable Jd, Niurka DO Unavailable Unavailable Jd, Niurka DO Unavailable Unavailable Jd, Niurka DO Unavailable Unavailable Jd, Niurka DO Unavailable Unavailable Jd, Niurka DO Unavailable Unavailable Jd, Niurka DO Unavailable Unavailable Jd, Niurka DO Unavailable Unavailable Jd, Niurka DO Unavailable Unavailable Jd, Niurka DO Unavailable Unavailable Jd, Niurka DO Unavailable Unavailable Jd, Niurka DO Unavailable Unavailable Jd, Niurka DO Unavailable Unavailable Jd, Niurka DO Unavailable Unavailable Jd, Niurka DO Unavailable Unavailable Jd, Niurka DO Unavailable Unavailable Jd, Niurka DO Unavailable Unavailable Jd, Niurka DO Unavailable Unavailable Jd, Niurka DO Unavailable Unavailable Jd, Niurka DO Unavailable Unavailable Jd, Niurka DO Unavailable Unavailable Jd, Niurka DO Unavailable Unavailable Jd, Niurka DO Unavailable Unavailable Jd, Niurka DO Unavailable Unavailable Jd, Niurka DO Unavailable Unavailable Jd, Niurka DO Unavailable Unavailable Jd, Niurka DO Unavailable Unavailable Jd, Niurka DO Unavailable Unavailable Jd, Niurka DO Unavailable Unavailable Jd, Niurka DO Unavailable Unavailable Jd, Niurka DO Unavailable Unavailable Jd, Niurka DO Unavailable Unavailable Jd, Niurka DO Unavailable Unavailable Jd, Niurka DO Unavailable Unavailable Jd, Niurka DO Unavailable Unavailable Jd, Niurka DO Unavailable Unavailable Jd, Niurka DO Unavailable Unavailable Jd, Niurka DO Unavailable Unavailable Jd, Niurka DO Unavailable Unavailable Jd, Niurka DO Unavailable Unavailable Jd, Niurka DO Unavailable Unavailable Jd, Niurka DO Unavailable Unavailable Jd, Niurka DO Unavailable Unavailable Jd, Niurka DO Unavailable Unavailable Jd, Niurka DO Unavailable Unavailable Jd, Niurka DO Unavailable Unavailable Jd, Niurka DO Unavailable Unavailable Jd, Niurka DO Unavailable Unavailable Jd, Niurka DO Unavailable Unavailable Jd, Niurka DO Unavailable Unavailable Jd, Niurka DO Unavailable Unavailable Jd, Niurka DO Unavailable Unavailable Jd, Niurka DO Unavailable Unavailable Jd, Niurka DO Unavailable Unavailable Jd, Niurka DO Unavailable Unavailable Jd, Niurka DO Unavailable Unavailable Jd, Niurka DO Unavailable Unavailable Jd, Niurka DO Unavailable Unavailable Jd, Niurka DO Unavailable Unavailable Jd, Niurka DO Unavailable Unavailable Jumalon, M Kathy MANAGER ADMINISTRATIVE SERVICES Unavailable Unavailable Jumalon, M Kathy MANAGER ADMINISTRATIVE SERVICES Unavailable Unavailable Jumalon, M Kathy MANAGER ADMINISTRATIVE SERVICES Unavailable Unavailable Jumalon, M Kathy MANAGER ADMINISTRATIVE SERVICES Unavailable Unavailable Jumalon, M Kathy MANAGER ADMINISTRATIVE SERVICES Unavailable Unavailable Jumalon, M Kathy MANAGER ADMINISTRATIVE SERVICES Unavailable Unavailable Jumalon, M Kathy MANAGER ADMINISTRATIVE SERVICES Unavailable Unavailable Jumalon, M Kathy MANAGER ADMINISTRATIVE SERVICES Unavailable Unavailable Jumalon, M Kathy MANAGER ADMINISTRATIVE SERVICES Unavailable Unavailable Jumalon, M Kathy MANAGER ADMINISTRATIVE SERVICES Unavailable Unavailable Jumalon, M Kathy MANAGER ADMINISTRATIVE SERVICES Unavailable Unavailable Jumalon, M Kathy MANAGER ADMINISTRATIVE SERVICES Unavailable Unavailable Jumalon, M Kathy MANAGER ADMINISTRATIVE SERVICES Unavailable Unavailable Jumalon, M Kathy MANAGER ADMINISTRATIVE SERVICES Unavailable Unavailable Jumalon, M Kathy MANAGER ADMINISTRATIVE SERVICES Unavailable Unavailable Jumalon, M Kathy MANAGER ADMINISTRATIVE SERVICES Unavailable Unavailable Jumalon, M Kathy MANAGER ADMINISTRATIVE SERVICES Unavailable Unavailable Jumalon, M Kathy MANAGER ADMINISTRATIVE SERVICES Unavailable Unavailable Jumalon, M Kathy MANAGER ADMINISTRATIVE SERVICES Unavailable Unavailable Jumalon, M Kathy MANAGER ADMINISTRATIVE SERVICES Unavailable Unavailable Jumalon, M Kathy MANAGER ADMINISTRATIVE SERVICES Unavailable Unavailable Jumalon, M Kathy MANAGER ADMINISTRATIVE SERVICES Unavailable Unavailable Jumalon, M Kathy MANAGER ADMINISTRATIVE SERVICES Unavailable Unavailable Jumalon, M Kathy MANAGER ADMINISTRATIVE SERVICES Unavailable Unavailable Jumalon, M Kathy MANAGER ADMINISTRATIVE SERVICES Unavailable Unavailable Jumalon, M Kathy MANAGER ADMINISTRATIVE SERVICES Unavailable Unavailable Jumalon, M Kathy MANAGER ADMINISTRATIVE SERVICES Unavailable Unavailable Jumalon, M Kathy MANAGER ADMINISTRATIVE SERVICES Unavailable Unavailable Jumalon, M Kathy MANAGER ADMINISTRATIVE SERVICES Unavailable Unavailable Jumalon, M Kathy MANAGER ADMINISTRATIVE SERVICES Unavailable Unavailable Lily Cox MD Unavailable Unavailable Lily Cox MD Unavailable Unavailable ChilesLily MD Unavailable Unavailable ChilesLily MD Unavailable Unavailable ChilesLily MD Unavailable Unavailable ChilesLily MD Unavailable Unavailable ChilesLily MD Unavailable Unavailable ChilesLily MD Unavailable Unavailable ChilesLily MD Unavailable Unavailable ChilesLily MD Unavailable Unavailable ChilesLily MD Unavailable Unavailable ChilesLily MD Unavailable Unavailable ChilesLily MD Unavailable Unavailable ChilesLily MD Unavailable Unavailable ChilesLily MD Unavailable Unavailable ChilesLily MD Unavailable Unavailable ChilesLily MD Unavailable Unavailable ChilesLily MD Unavailable Unavailable ChilesLily MD Unavailable Unavailable ChilesLily MD Unavailable Unavailable ChilesLily MD Unavailable Unavailable ChilesLily MD Unavailable Unavailable ChilesLily MD Unavailable Unavailable ChilesLily MD Unavailable Unavailable ChilesLily MD Unavailable Unavailable ChilesLily MD Unavailable Unavailable ChilesLily MD Unavailable Unavailable ChilesLily MD Unavailable Unavailable ChilesLily MD Unavailable Unavailable ChilesLily MD Unavailable Unavailable ChilesLily MD Unavailable Unavailable ChilesLily MD Unavailable Unavailable ChilesLily MD Unavailable Unavailable ChilesLily MD Unavailable Unavailable ChilesLily MD Unavailable Unavailable ChilesLily MD Unavailable Unavailable ChilesLily MD Unavailable Unavailable ChilesLily MD Unavailable Unavailable ChilesLily MD Unavailable Unavailable ChilesLily MD Unavailable Unavailable ChilesLily MD Unavailable Unavailable ChilesLily MD Unavailable Unavailable ChilesLily MD Unavailable Unavailable ChilesLily MD Unavailable Unavailable ChilesLily MD Unavailable Unavailable ChilesLily MD Unavailable Unavailable ChilesLily MD Unavailable Unavailable ChilesLily MD Unavailable Unavailable ChilesLily MD Unavailable Unavailable ChilesLily MD Unavailable Unavailable ChilesLily MD Unavailable Unavailable ChilesLily MD Unavailable Unavailable ChilesLily MD Unavailable Unavailable ChilesLily MD Unavailable Unavailable ChilesLily MD Unavailable Unavailable ChilesLily MD Unavailable Unavailable ChilesLily MD Unavailable Unavailable ChilesLily MD Unavailable Unavailable Chiles, Lily Costa MD Unavailable Unavailable Chiles, Lily Costa MD Unavailable Unavailable Chiles, Lily Costa MD Unavailable Unavailable Chiles, Lily Costa MD Unavailable Unavailable Chiles, Lily Costa MD Unavailable Unavailable Chiles, Lily Costa MD Unavailable Unavailable Chiles, Lily Costa MD Unavailable Unavailable Chiles, Lily Costa MD Unavailable Unavailable Chiles, Lily Costa MD Unavailable Unavailable Chiles, Lily Costa MD Unavailable Unavailable Chiles, Lily oCsta MD Unavailable Unavailable Chiles, Lily Costa MD Unavailable Unavailable Chiles, Lily Costa MD Unavailable Unavailable Chiles, Lily Costa MD Unavailable Unavailable Chiles, Lily Costa MD Unavailable Unavailable Chiles, Lily Costa MD Unavailable Unavailable Chiles, Lily Costa MD Unavailable Unavailable Chiles, Lily Costa MD Unavailable Unavailable Chiles, Lily Costa MD Unavailable Unavailable Chiles, Lily Costa MD Unavailable Unavailable Chiles, Lily Costa MD Unavailable Unavailable Chiles, Lily Costa MD Unavailable Unavailable Chiles, Lily Costa MD Unavailable Unavailable Chiles, Lily Costa MD Unavailable Unavailable Chiles, Lily Costa MD Unavailable Unavailable Chiles, Lily Costa MD Unavailable Unavailable Akers, A Phyl MANAGER ADMINISTRATIVE SERVICES-BC Unavailable Unavailable Akers, A Phyl MANAGER ADMINISTRATIVE SERVICES-BC Unavailable Unavailable Akers, A Phyl MANAGER ADMINISTRATIVE SERVICES-BC Unavailable Unavailable Akers, A Phyl MANAGER ADMINISTRATIVE SERVICES-BC Unavailable Unavailable Akers, A Phyl MANAGER ADMINISTRATIVE SERVICES-BC Unavailable Unavailable Akers, A Phyl MANAGER ADMINISTRATIVE SERVICES-BC Unavailable Unavailable Akers, A Phyl MANAGER ADMINISTRATIVE SERVICES-BC Unavailable Unavailable Akers, A Phyl MANAGER ADMINISTRATIVE SERVICES-BC Unavailable Unavailable Akers, A Phyl MANAGER ADMINISTRATIVE SERVICES-BC Unavailable Unavailable Akers, A Phyl MANAGER ADMINISTRATIVE SERVICES-BC Unavailable Unavailable Akers, A Phyl MANAGER ADMINISTRATIVE SERVICES-BC Unavailable Unavailable Akers, A Phyl MANAGER ADMINISTRATIVE SERVICES-BC Unavailable Unavailable Akers, A Phyl MANAGER ADMINISTRATIVE SERVICES-BC Unavailable Unavailable Akers, A Phyl MANAGER ADMINISTRATIVE SERVICES-BC Unavailable Unavailable Akers, A Phyl MANAGER ADMINISTRATIVE SERVICES-BC Unavailable Unavailable Akers, A Phyl MANAGER ADMINISTRATIVE SERVICES-BC Unavailable Unavailable Akers, A Phyl MANAGER ADMINISTRATIVE SERVICES-BC Unavailable Unavailable Akers, A Phyl MANAGER ADMINISTRATIVE SERVICES-BC Unavailable Unavailable Akers, A Phyl MANAGER ADMINISTRATIVE SERVICES-BC Unavailable Unavailable Akers, A Phyl MANAGER ADMINISTRATIVE SERVICES-BC Unavailable Unavailable Akers, A Phyl MANAGER ADMINISTRATIVE SERVICES-BC Unavailable Unavailable Akers, A Phyl MANAGER ADMINISTRATIVE SERVICES-BC Unavailable Unavailable Akers, A Phyl MANAGER ADMINISTRATIVE SERVICES-BC Unavailable Unavailable Akers, A Phyl MANAGER ADMINISTRATIVE SERVICES-BC Unavailable Unavailable Akers, A Phyl MANAGER ADMINISTRATIVE SERVICES-BC Unavailable Unavailable Akers, A Phyl MANAGER ADMINISTRATIVE SERVICES-BC Unavailable Unavailable Akers, A Phyl MANAGER ADMINISTRATIVE SERVICES-BC Unavailable Unavailable Akers, A Phyl MANAGER ADMINISTRATIVE SERVICES-BC Unavailable Unavailable Akers, A Phyl MANAGER ADMINISTRATIVE SERVICES-BC Unavailable Unavailable Akers, A Phyl MANAGER ADMINISTRATIVE SERVICES-BC Unavailable Unavailable Akers, A Phyl MANAGER ADMINISTRATIVE SERVICES-BC Unavailable Unavailable Akers, A Phyl MANAGER ADMINISTRATIVE SERVICES-BC Unavailable Unavailable GARCÍA, M SD PA Unavailable Unavailable GARCÍA, M SD PA Unavailable Unavailable GARCÍA, M SD PA Unavailable Unavailable GARCÍA, M SD PA Unavailable Unavailable GARCÍA, M SD PA Unavailable Unavailable GARCÍA, M SD PA Unavailable Unavailable GARCÍA, M SD PA Unavailable Unavailable GARCÍA, M SD PA Unavailable Unavailable GARCÍA, M SD PA Unavailable Unavailable GARCÍA, M DS PA Unavailable Unavailable GARCÍA, M SD PA Unavailable Unavailable GARCÍA, M SD PA Unavailable Unavailable GARCÍA, M SD PA Unavailable Unavailable GARCÍA, M SD PA Unavailable Unavailable GARCÍA, M SD PA Unavailable Unavailable GARCÍA, M SD PA Unavailable Unavailable GARCÍA, M SD PA Unavailable Unavailable GARCÍA, M SD PA Unavailable Unavailable GARCÍA, M SD PA Unavailable Unavailable GARCÍA, M SD PA Unavailable Unavailable GARCÍA, M SD PA Unavailable Unavailable GARCÍA, M SD PA Unavailable Unavailable GARCÍA, M SD PA Unavailable Unavailable GARCÍA, M SD PA Unavailable Unavailable GARCÍA, M SD PA Unavailable Unavailable GARCÍA, M SD PA Unavailable Unavailable GARCÍA, M SD PA Unavailable Unavailable GARCÍA, M SD PA Unavailable Unavailable GARCÍA, M SD PA Unavailable Unavailable GARCÍA, M SD PA Unavailable Unavailable GARCÍA, M SD PA Unavailable Unavailable GARCÍA, M SD PA Unavailable Unavailable GARCÍA, M SD PA Unavailable Unavailable GARCÍA, M SD PA Unavailable Unavailable GARCÍA, M SD PA Unavailable Unavailable RIDGE, M MITA PA Unavailable Unavailable RIDGE, M MITA PA Unavailable Unavailable RIDGE, M MITA PA Unavailable Unavailable RIDGE, M MITA PA Unavailable Unavailable RIDGE, M MITA PA Unavailable Unavailable RIDGE, M MITA PA Unavailable Unavailable RIDGE, M MITA PA Unavailable Unavailable RIDGE, M MITA PA Unavailable Unavailable RIDGE, M MITA PA Unavailable Unavailable RIDGE, M MITA PA Unavailable Unavailable RIDGE, M MITA PA Unavailable Unavailable RIDGE, M MITA PA Unavailable Unavailable RIDGE, M MITA PA Unavailable Unavailable RIDGE, M MITA PA Unavailable Unavailable RIDGE, M MITA PA Unavailable Unavailable RIDGE, M MITA PA Unavailable Unavailable RIDGE, M MITA PA Unavailable Unavailable RIDGE, M MITA PA Unavailable Unavailable RIDGE, M MITA PA Unavailable Unavailable RIDGE, M MITA PA Unavailable Unavailable RIDGE, M MITA PA Unavailable Unavailable RIDGE, M MITA PA Unavailable Unavailable RIDGE, M MITA PA Unavailable Unavailable RIDGE, M MITA PA Unavailable Unavailable Feola, T Melissa PA Unavailable Unavailable Feola, T Melissa PA Unavailable Unavailable Feola, T Melissa PA Unavailable Unavailable Feola, T Melissa PA Unavailable Unavailable Feola, T Mleissa PA Unavailable Unavailable Feola, T Melissa PA Unavailable Unavailable Feola, T Melissa PA Unavailable Unavailable Feola, T Melissa PA Unavailable Unavailable Feola, T Melissa PA Unavailable Unavailable Feola, T Melissa PA Unavailable Unavailable Feola, T Melissa PA Unavailable Unavailable Feola, T Melissa PA Unavailable Unavailable Feola, T Melissa PA Unavailable Unavailable Feola, T Melissa PA Unavailable Unavailable Feola, T Melissa PA Unavailable Unavailable Feola, T Melissa PA Unavailable Unavailable Feola, T Melissa PA Unavailable Unavailable Feola, T Melissa PA Unavailable Unavailable Feola, T Melissa PA Unavailable Unavailable Feola, T Melissa PA Unavailable Unavailable Feola, T Melissa PA Unavailable Unavailable Feola, T Melissa PA Unavailable Unavailable Feola, T Melissa PA Unavailable Unavailable Feola, T Melissa PA Unavailable Unavailable Feola, T Melissa PA Unavailable Unavailable Feola, T Melissa PA Unavailable Unavailable Feola, T Melissa PA Unavailable Unavailable Feola, T Melissa PA Unavailable Unavailable Feola, T Melissa PA Unavailable Unavailable Feola, T Melissa PA Unavailable Unavailable Feola, T Melissa PA Unavailable Unavailable Feola, T Melissa PA Unavailable Unavailable Feola, T Melissa PA Unavailable Unavailable Feola, T Melissa PA Unavailable Unavailable Feola, T Melissa PA Unavailable Unavailable Feola, T Melissa PA Unavailable Unavailable Feola, T Melissa PA Unavailable Unavailable Feola, T Melissa PA Unavailable Unavailable Feola, T Melissa PA Unavailable Unavailable Feola, T Melissa PA Unavailable Unavailable Feola, T Melissa PA Unavailable Unavailable Chidi Perez MD Unavailable Unavailable Chidi Perez MD Unavailable Unavailable Chidi Perez MD Unavailable Unavailable Chidi Perez MD Unavailable Unavailable Chidi Perez MD Unavailable Unavailable Chidi Perez MD Unavailable Unavailable Chidi Perez MD Unavailable Unavailable Chidi Perez MD Unavailable Unavailable Chidi Perez MD Unavailable Unavailable Chidi Perez MD Unavailable Unavailable Chidi Perez MD Unavailable Unavailable Chidi Perez MD Unavailable Unavailable Chidi Perez MD Unavailable Unavailable Chidi Perez MD Unavailable Unavailable Chidi Perez MD Unavailable Unavailable Chidi Perez MD Unavailable Unavailable Chidi Perez MD Unavailable Unavailable Chidi Perez MD Unavailable Unavailable Chidi Perez MD Unavailable Unavailable Chidi Perez MD Unavailable Unavailable Chidi Perez MD Unavailable Unavailable Chidi Perez MD Unavailable Unavailable Chidi Perez MD Unavailable Unavailable Chidi Perez MD Unavailable Unavailable Chidi Perez MD Unavailable Unavailable Chidi Perez MD Unavailable Unavailable Chidi Perez MD Unavailable Unavailable Chidi Perez MD Unavailable Unavailable Chidi Perez MD Unavailable Unavailable Chidi Perez MD Unavailable Unavailable Chidi Perez MD Unavailable Unavailable Chidi Perez MD Unavailable Unavailable Elvira PHAM MD Unavailable Unavailable Elvira PHAM MD Unavailable Unavailable Elvira PHAM MD Unavailable Unavailable Elvira PHAM MD Unavailable Unavailable Elvira PHAM MD Unavailable Unavailable Elvira PHAM MD Unavailable Unavailable Elvira PHAM MD Unavailable Unavailable Elvira PHAM MD Unavailable Unavailable Elvira PHAM MD Unavailable Unavailable Elvira PHAM MD Unavailable Unavailable Elvira PHAM MD Unavailable Unavailable Elvira PHAM MD Unavailable Unavailable Elvira PHAM MD Unavailable Unavailable Elvira PHAM MD Unavailable Unavailable Elvira PHAM MD Unavailable Unavailable Elvira PHAM MD Unavailable Unavailable Elvira PHAM MD Unavailable Unavailable Elvira PHAM MD Unavailable Unavailable Elvira PHAM MD Unavailable Unavailable Elvira PHAM MD Unavailable Unavailable Elvira PHAM MD Unavailable Unavailable Elvira PHAM MD Unavailable Unavailable Elvira PHAM MD Unavailable Unavailable Elvira PHAM MD Unavailable Unavailable Elvira PHAM MD Unavailable Unavailable Elvira PHAM MD Unavailable Unavailable Elvira PHAM MD Unavailable Unavailable Elvira PHAM MD Unavailable Unavailable Elvira PHAM MD Unavailable Unavailable Elvira PHAM MD Unavailable Unavailable Elvira PHAM MD Unavailable Unavailable CHIN, S MICHELLE MD Unavailable Unavailable CHIN, S MICHELLE MD Unavailable Unavailable CHIN, S MICHELLE MD Unavailable Unavailable CHIN, S MICHELLE MD Unavailable Unavailable CHIN, S MICHELLE MD Unavailable Unavailable CHIN, S MICHELLE MD Unavailable Unavailable CHIN, S MICHELLE MD Unavailable Unavailable CHIN, S MICHELLE MD Unavailable Unavailable CHIN, S MICHELLE MD Unavailable Unavailable CHIN, S MICHELLE MD Unavailable Unavailable CHIN, S MICHELLE MD Unavailable Unavailable CHIN, S MICHELLE MD Unavailable Unavailable CHIN, S MICHELLE MD Unavailable Unavailable CHIN, S MICHELLE MD Unavailable Unavailable CHIN, S MICHELLE MD Unavailable Unavailable CHIN, S MICHELLE MD Unavailable Unavailable CHIN, S MICHELLE MD Unavailable Unavailable CHIN, S MICHELLE MD Unavailable Unavailable CHIN, S MICHELLE MD Unavailable Unavailable CHIN, S MICHELLE MD Unavailable Unavailable CHIN, S MICHELLE MD Unavailable Unavailable CHIN, S MICHELLE MD Unavailable Unavailable CHIN, S MICHELLE MD Unavailable Unavailable CHIN, S MICHELLE MD Unavailable Unavailable CHIN, S MICHELLE MD Unavailable Unavailable CHIN, S MICHELLE MD Unavailable Unavailable CHIN, S MICHELLE MD Unavailable Unavailable CHIN, S MICHELLE MD Unavailable Unavailable CHIN, S MICHELLE MD Unavailable Unavailable CHIN, S MICHELLE MD Unavailable Unavailable CHIN, S MICHELLE MD Unavailable Unavailable CHIN, S MICHELLE MD Unavailable Unavailable CHIN, S MICHELLE MD Unavailable Unavailable CHIN, S MICHELLE MD Unavailable Unavailable CHIN, S MICHELLE MD Unavailable Unavailable CHIN, S MICHELLE MD Unavailable Unavailable CHIN, S MICHELLE MD Unavailable Unavailable CHIN, S MICHELLE MD Unavailable Unavailable CHIN, S MICHELLE MD Unavailable Unavailable CHIN, S MICHELLE MD Unavailable Unavailable CHIN, S MICHELLE MD Unavailable Unavailable CHIN, S MICHELLE MD Unavailable Unavailable CHIN, S MICHELLE MD Unavailable Unavailable CHIN, S MICHELLE MD Unavailable Unavailable CHIN, S MICHELLE MD Unavailable Unavailable CHIN, S MICHELLE MD Unavailable Unavailable CHIN, S MICHELLE MD Unavailable Unavailable CHIN, S MICHELLE MD Unavailable Unavailable CHIN, S MICHELLE MD Unavailable Unavailable CHIN, S MICHELLE MD Unavailable Unavailable CHIN, S MICHELLE MD Unavailable Unavailable CHIN, S MICHELLE MD Unavailable Unavailable CHIN, S MICHELLE MD Unavailable Unavailable CHIN, S MICHELLE MD Unavailable Unavailable CHIN, S MICHELLE MD Unavailable Unavailable Re-disclosure Warning The records that you are about to access may contain information from federally-assisted alcohol or drug abuse programs. If such information is present, then the following federally mandated warning applies: This information has been disclosed to you from records protected by federal confidentiality rules (42 CFR part 2). The federal rules prohibit you from making any further disclosure of this information unless further disclosure is expressly permitted by the written consent of the person to whom it pertains or as otherwise permitted by 42 CFR part 2. A general authorization for the release of medical or other information is NOT sufficient for this purpose. The Federal rules restrict any use of the information to criminally investigate or prosecute any alcohol or drug abuse patient.The records that you are about to access may contain highly sensitive health information, the redisclosure of which is protected by Article 27-F of the [facility] Public Health law. If you continue you may have access to information: Regarding HIV / AIDS; Provided by facilities licensed or operated by the [facility] Office of Mental Health; or Provided by the [facility] Office for People With Developmental Disabilities. If such information is present, then the following [facility] mandated warning applies: This information has been disclosed to you from confidential records which are protected by state law. State law prohibits you from making any further disclosure of this information without the specific written consent of the person to whom it pertains, or as otherwise permitted by law. Any unauthorized further disclosure in violation of state law may result in a fine or halfway sentence or both. A general authorization for the release of medical or other information is NOT sufficient authorization for further disc losure. Family History Family Member Name Family Member Gender Family Member Status Date o f Status Description Data Source(s) Unknown Unknown Problem MEDENT ([facility]) Unknown Unknown Problem MEDENT ([facility]) Unknown Female Problem MEDENT ([facility]) Unknown Unknown Problem MEDENT ([facility]) Unknown Unknown Problem MEDENT ([facility]) Unknown Unknown Problem MEDENT ([facility]) Unknown Unknown Problem [facility] ([facility] ) Encounters Encounter Providers Location Date Indications Data Source(s ) Outpatient Attender: Melissa NELSON 021 08:32:17 AM EDT - 10/13/2020 09:36:59 AM EDT [facility] ([facility] ) Outpatient Attender: Belén Akers [facility] Main Office 0 09/09/2020 05:00:00 PM EDT MEDENT ([facility]) Recurring Patient Attender: Elliott GARIBAYeferrer: Mal cutler MD 09/03/2020 11:16:21 AM EDT [facility] Outpatient Attender: SD Macias/Aldo/Kingsley/Rein dl 08/18/2020 02:30:00 PM EDT MEDENT ([facility]) Outpatient Attender: Jose NELSON 06/05/2020 08:56:0 0 PM EDT [facility] desk clerk Unknown [address] [facility] [address] 03/17/2020 12:00:00 AM EST eCW1 ([facility]) Outpatient Attender: Niurka Polanco 03/09 01:15:00 PM EST MEDENT ([facility] ) Outpatient Attender: SD Macias/Aldo/Kingsley/Rein dl 02/26/2020 02:30:00 PM EST MEDENT ([facility]) Outpatient Attender: MICHELLE PHAM MD 02/26/2020 12:00:00 AM [facility] Outpatient Attender: Deepti Fan PAConsultant: Niurka obregon DO 01/23/2020 12:51:00 PM EST - 01/23/2020 06:34:00 PM [facility] Patient discharged. Outpatient [address] [address] 01/07/2020 12:00:00 AM EST eCW1 ([facility]) Outpatient Attender: Deepti Fan PAConsultant: TYRONE LINDSEY MD 01/06/2020 02:24:00 PM EST - 01/06/2020 02:24:00 PM [facility] Outpatient Attender: MITA NELSON Physical Therapy 11/20 02:00:00 PM EDT MED[facility] ([facility]) Outpatient Attender: Chaka Macias/Aldo/Kingsley/Re indl 11/07/2019 03:10:00 PM EDT MED[facility] ([facility]) Kathy Palma, CHIEF PETROLEUM ENGINEER: [id number], [address], [place] [address], Ph. Attender: Kathy Palma [facility] - Main Office 10/31/2019 12:00:00 AM EDT SADAF SOLIMAN ([facility]) Outpatient Attender: MICHELLE PHAM MD [id number] 10/22 12:00:00 AM EDT - 10/23/2019 03:50:45 PM EDT [facility] Outpatient Referrer: Igor Cox MD MOB-MOB.PAT 02/2019 11:42:25 AM EDT - 07/22/2019 11:42:32 AM EDT [facility] Immunizations Vaccine Date Status Description Data Source(s) COVID-19 VACCINE Moderna 06/07/2020 12:00:00 AM EDT completed [facility] Vaccine Series Complete: YESThis Data wa s Submitted to [facility] Via [facility].. COVID-19 VACC,MRNA(MODERNA)/PF 06/07/2020 12:00:00 AM EDT completed [facility] COVID-19 VACCINE Moderna 05/09/2020 12:00:00 AM EDT completed [facility] Vaccine Series Complete: NOThis Data was Submitted to [facility] Via [facility].. COVID-19 VACCINE, MRNA-1273, LNP-S (MODERNA)/PF 05/09/2020 1 2:00:00 AM EDT completed [facility] Medications Medication Brand Name Start Date Product Form Dose Route Admi nistrative Instructions Pharmacy Instructions Status Indications Reaction Description Data Source(s) 150 mg 10/13/2020 12:00:00 AM EDT tablet 1 TAKE 1 TABLET BY MOUTH FOR 1 DOSE TAKE 1 TABLET BY MOUTH FOR 1 DOSE SOLD: 10/13/2020 [facility] Amoxicillin 875 MG / Clavulanate 125 MG Oral Tablet 87 5-125 mg AMOXICILLIN/POTASSIUM CLAV 10/13/2020 12:00:00 AM EDT tablet 20 TAKE ONE TABLET BY MOUTH TWICE A DAY FOR 10 DAYS TAKE ONE TABLET BY MOUTH TWICE A DAY FOR 10 DAYS SOLD: 10/13/2020 [facility] Diclofenac Sodium 0.01 MG/MG Topical Gel [Voltaren] Voltaren 09/08/2020 12:00:00 AM EDT active MEDENT ([facility]) 500 mg 06/05/2020 12:00:00 AM EDT tablet 20 TAKE ONE TABLET BY MOUTH TWICE A DAY FOR 10 DAYS TAKE ONE TABLET BY MOUTH TWICE A DAY FOR 10 DAYS SOLD: 06/05/2020 [facility] 100 mg 06/05/2020 12:00:00 AM EDT tablet 10 TAKE ONE TABLET BY MOUTH EVERY DAY TAKE ONE TABLET BY MOUTH EVERY DAY SOLD: 06/05/2020 [facility] Fluconazole 100 MG Oral Tablet [Diflucan] Diflucan 06/05/2020 1 2:00:00 AM EDT ORAL active [facility] ([facility] Ciprofloxacin 500 MG Oral Tablet Ciprofloxacin HCL 06/05/2020 12:00 :00 AM EDT ORAL active [facility] ([facility] Cephalexin 500 MG Oral Capsule CEPHALEXIN 05/19/2020 12:00:00 AM EDT capsule 21 TAKE ONE CAPSULE BY MOUTH THREE TIMES A DAY FOR 7 DAYS TAKE ONE CAPSULE BY MOUTH THREE TIMES A DAY FOR 7 DAYS SOLD: 05/19/2020 [facility] 200 mg 05/19/2020 12:00:00 AM EDT tablet 6 TAKE ONE TABLET BY MOUTH THREE TIMES A DAY FOR 2 DAYS TAKE ONE TABLET BY MOUTH THREE TIMES A DAY FOR 2 DAYS SOLD: 05/19/2020 [facility] 8 HR Acetaminophen 650 MG Extended Release Oral Tablet [Tylenol] Tylenol 8 Hour [facility] 03/09/2020 12:00:00 AM EST active MEDENT ([facility]) meloxicam 7.5 MG Oral Tablet Meloxicam 12/06/2019 12:00:00 AM EDT ORAL active MEDENT ([facility] ) Insurance Providers Payer name Policy type / Coverage type Policy ID Covered constitution party ID Covered constitution party's relationship to goodwin Policy Goodwin Plan Information [facility] [id number] SP [id number] [employer] Blue Shield Medigap Part B [id number] Self 580 [employer] Blue Shield Medigap Part B [id number] [id number] Self [id number] EXCELLUS C [id number] Self [id number] [facility] BC/BS Commercial [id number] Self [id number] EXCELLUS [facility] [id number] SP [id number] EXCELLUS [facility] [id number] BCBS FEDERAL EMPLOYEE PROGRAM [id number] [facility]/BS Commercial [id number] 2.16.840.1.328278.3.227.99.4595.2 2312.0 Self [id number] [employer] U [id number] Spouse [id number] LIFETIME BENEFIT SOLUTIONS U [id number] Spouse [id number] LIFETIME BENEFIT SOLUTIONS U [id number] Spouse [id number] LIFETIME BENEFIT SOLUTIONS U [id number] Spouse [id number] LIFETIME BENEFIT SOLUTIONS [id number] HU2 [id number] Lifetime Benefit Solution Medigap Part B [id number] 2.16.840.1.539920.3.227.99.991.956825.0 [id number] Lifetime Benefit Solution Medigap Part B [id number] 2.16.840.1.365933.3.227.99.991.644248.0 [id number] Lifetime Benefit Solution Medigap Part B [id number] 2.16.840.1.038312.3.227.99.991.192684.0 [id number] Lifetime Benefit Solution Medigap Part B [id number] 2.16.840.1.100926.3.227.99.991.231173.0 [id number] Lifetime Benefit Solution Medigap Part B [id number] 2.16.840.1.704991.3.227.99.991.641911.0 [id number] Lifetime Benefit Solution Medigap Part B [id number] 2.16.840.1.949654.3.227.99.991.653855.0 [id number] Lifetime Benefit Solution Medigap Part B [id number] 2.16.840.1.042877.3.227.99.991.316539.0 [id number] Lifetime Benefit Solution [facility] [id number] 2.16.840.1.478055.3.227.99.991.311153.0 [id number] Lifetime Benefit Solution [facility] [id number] Fed Plan Commercial [id number] Self Lifetime Benefit Solution Medigap Part B [id number] 2.16.840.1.219496.3.227.99.991.722559.0 [id number] Lifetime Benefit Solution [facility] Part B [id number] 2.16.840.1.634450.3.227.99.991.650446.0 [id number] Lifetime Benefit Solution [facility] Part B [id number] 2.16.840.1.071604.3.227.99.991.073926.0 [id number] Lifetime Benefit Solution [facility] Part B [id number] 2.16.840.1.628300.3.227.99.991.105477.0 [id number] Lifetime Benefit Solution [facility] Part B [id number] 2.16.840.1.728037.3.227.99.991.812777.0 [id number] Lifetime Benefit ([employer]) Commercial [id number] 2.16.840.1.502281.3.227.99.4595.36146.0 Family Dependent [id number] Lifetime Benefit ([employer]) Commercial Medical Coverage [id number] Family Dependent Medical Coverage Acc/Dol ([place] Labor) () Workers Compensation [id number] Self [place] DEPT OF LABOR W [id number] Empl [id number] [place]ol Comp [facility] Part B [id number] 2.16.840.1.154205.3.227.99 .4595.72040.0 Self [id number] Acc/Dol ([place] Labor) () Workers Compensation [id number] 2.16.840.1.336039.3.227.99.991.582315.0 Self [id number] Acc/Dol ([place] Labor) () Workers Compensation [id number] 2.16.840.1.890185.3.227.99.991.687654.0 Self [id number] Acc/Dol ([place] Labor) () Workers Compensation [id number] 2.16.840.1.871130.3.227.99.991.555784.0 Self [id number] Acc/Dol ([place] Labor) () Workers Compensation [id number] 2.16.840.1.499688.3.227.99.991.447359.0 Self [id number] Acc/Dol ([place] Labor) () Workers Compensation [id number] 2.16.840.1.702932.3.227.99.991.473623.0 Self [id number] Acc/Dol ([place] Labor) () Workers Compensation [id number] 2.16.840.1.465112.3.227.99.991.831021.0 Self [id number] Acc/Dol ([place] Labor) () Workers Compensation [id number] 2.16.840.1.182275.3.227.99.991.217705.0 Self [id number] Acc/Dol ([place] Labor) () Workers Compensation [id number] 2.16.840.1.336751.3.227.99.991.091732.0 Self [id number] Acc/Dol ([place] Labor) () Workers Compensation [id number] 2.16.840.1.596168.3.227.99.991.523392.0 Self [id number] Acc/Dol ([place] Labor) () Workers Compensation [id number] 2.16.840.1.059399.3.227.99.991.089357.0 Self [id number] Acc/Dol ([place] Labor) () Workers Compensation [id number] 2.16.840.1.115349.3.227.99.991.677163.0 Self [id number] Acc/Dol ([place] Labor) () Workers Compensation [id number] 2.16.840.1.998304.3.227.99.991.257738.0 Self [id number] Acc/Dol ([place] Labor) () Workers Compensation [id number] 2.16.840.1.295324.3.227.99.991.896440.0 Self [id number] BS Fed Plan Commercial [id number] 2.16.840.1.699202.3.227.99.991.142520 .0 Self [id number] EXCELLUS BCBS [id number] xxxxxxxxx [phone] EXCELLUS C [id number] Self [id number] [facility] BC/BS Commercial [id number] 2.0.1.657857.3.227.99.4595.2 2312.0 Self [id number] EXCELLUS BCBS [id number] Melina [id number] LIFETIME BENEFIT SOLUTIONS [id number] HU2 [id number] BCBS FEDERAL EMPLOYEE PROGRAM [id number] INSURANCE COVID-19 [id number] xxxxx [id number] INSURANCE COVID-19 COVID Melina C OVID AETNA LIFE CASUALTY [id number] SPO [id number] BLUE CROSS FED EMPLOYEE PLAN [id number] SP [id number] SELF PAY Excellus Blue Cross and Blue Shield - [place] Blue Cross/B lue Shield [id number] Self [id number] [employer]etna [employer] [id number] Self [id number] ANSI-Not a Secondary Insurance [id number] LIFETIME BENEFIT SOLUTIONS [id number] HU2 [id number] [facility] Medigap Part B [id number] 2.0..258682.3.227.99 .8646.59703.0 Family Dependent [id number] Lifetime Benefits [employer] Medigap Part B [id number] 2.0.1.837318.3.227.99.8646.70238.0 Family Dependent [id number] Blue Shield Federal Health Maintenance Organization (O) [id number] 2.0.1.725491.3.227.99.8646.14227.0 Self [id number] Lifetime Benefit Solution Commercial [id number] 2.0.1.087290.3.227.99.2686.3842.0 Family Dependent [id number] Excell[employer] CNY Fep Commercial [id number] 2.16.840.1.555869.3.227. 99.2686.3842.0 Self [id number] BC BS [facility] B [id number] S [id number] Lifetime Benefit Solution Commercial [id number] 2.16.840.1.988592.3.227.99.2686.3842.0 Family Dependent [id number] Excell[employer] CNY Fep Commercial [id number] 2.16.840.1.248695.3.227. 99.2686.3842.0 Self [id number] Lifetime Benefit Solution Commercial [id number] 2.16.840.1.522030.3.227.99.2686.3842.0 Family Dependent [id number] [employer] CNY Fep Commercial [id number] 2.16.840.1.344058.3.227. 99.2686.3842.0 Self [id number] Lifetime Benefit ([employer]) Commercial [id number] 2.16.840.1.789267.3.227.99.4595.90134.0 Family Dependent [id number] Lifetime [employer] Commercial [id number] Family Dependent EBSRMSCO LIFETIME BENEFIT SOLU [id number] Spo [id number] BC/BS (Federal) Commercial [id number] Self EBSRMSCO LIFETIME BENEFIT SOLUTIONS [id number] xxxxxxxxxxxx [id number] [place] DEPART OF LABOR O [id number] S [id number] [employer] S [id number] S [id number] LIFETIME BENEFIT SOLUTIO O [id number] S [id number] BC FEDERAL EMPLOYEE PROGRAM [id number] SP [id number] BS [facility] [id number] SP [id number] SELF PAY SP [employer] MEDICAL CLAIMS [id number] HU2 [id number] EBS [employer] WC CLAIMS S [id number] P [id number] [employer] EXCELLUS O [id number] U [id number] [place] DEPARTMENT OF LABOR WC WC [id number] 18 [id number] BC CNY FEDERAL PLN O [id number] S [id number] LIFETIME BENEFIT SOLUTIO O [id number] S [id number] DEPT OF LABOR -C [id number] [id number] [facility] FEDERAL EMPLOYEE PROGRAM [id number] SP [id number] AETNA [place] HEALTHCARE [place] [id number] HU2 [id number] [facility] [place] FEDERAL B [id number] S [id number] Lifetime Benefit Solution Medigap Part B [id number] Family De pendent BCBS Federal Plan Commercial [id number] Self AETNA O [id number] S [id number] Lifetime Benefit ([employer]) Commercial [id number] Family Depende nt EXCELLUS [facility] FEDERAL [id number] SP [id number] AETNA US HEALTHCARE [place] [id number] HU2 [id number] Lifetime Benefit Solution Commercial [id number] Family Depend ent BC/BS U/W - Federal Plans Commercial [id number] Self [employer] CNY Fep Commercial [id number] Self [id number] Lifetime Benefit Solution Commercial [id number] Family Dependent [id number] [employer] CNY Fep Commercial [id number] Self [id number] Lifetime Benefit Solution Medigap Part B [id number] Family Dependent [id number] BS Federal Commercial [id number] Self [id number] ANSI-Not a Secondary Insurance [id number] ANSI-Commercial [id number] Lifetime Benefit Solution Commercial [id number] Family Dependent 1 [id number] [employer] Commercial [id number] [id number]. 99.2686.3842.0 Self [id number] Lifetime Benefit Solution Commercial [id number] Family Dependent 1 [id number] [employer] Commercial [id number] 2.16.840.1.224762.3.227. 99.2686.3842.0 Self [id number] Lifetime Benefit Solution Commercial [id number] [id number] Family Dependent 1 [id number] Lifetime Benefit Solution Commercial [id number] Family Dependent [id number] [employer] Commercial [id number] [id number]. 99.2686.3842.0 Self [id number] LIFETIME BENEFIT SOLUTIONS [id number] HU2 [id number] [employer] [id number] SP [id number] Lifetime Benefit Solution Commercial [id number] [id number] Family Dependent [id number] [employer] Commercial [id number] [id number]. 99.2686.3842.0 Self [id number] Lifetime Benefit Solution Commercial [id number] Family Dependent [id number] [employer] Commercial [id number] 2.16.840.1.074855.3.227. 99.2686.3842.0 Self [id number] Lifetime Benefit Solution Commercial [id number] 2.16.840.1.462639.3.227.99.2686.3842.0 Family Dependent [id number] [employer] Commercial [id number] 2.16.840.1.309149.3.227. 99.2686.3842.0 Self [id number] Lifetime Benefit Solution Commercial [id number] 2.16.840.1.691736.3.227.99.2686.3842.0 Family Dependent [id number] [employer] Commercial [id number] 2.16.840.1.680044.3.227. 99.2686.3842.0 Self [id number] ANSI-Commercial [id number] ANSI-Not a Secondary Insurance [id number] ANSI-Commercial [id number] Problems, Conditions, and Diagnoses Code Display Name Description Problem Type Effective Dates Data Source(s) N39.0 Urinary tract infection, site not specif ied N39.0 - Urinary tract infection, site not specified Diagnosis 06/05/2020 08:56:00 PM EDT [email or web address] [id number] Spinal stenosis, lumbar region with neur ogenic claudication Spinal stenosis, lumbar region with neurogenic claudication Diagnosis 1 03/25/2019 12:51:00 PM [facility] [id number] Other specified postprocedural states Ot her specified postprocedural states Diagnosis 01/06/2020 02:24:00 PM [facility] M545 Low back pain Low back pain Diagnosis 01/06/2020 02:24:00 PM [facility] [id number] Never smoked tobacco Never smoked tobacco Problem 06/05/2020 12:00:00 AM EDT [facility] ([facility] Surgeries/Procedures Procedure Description Date Indications Data Source(s) OFFICE OUTPATIENT VISIT 25 MINUTES 09/09/2020 12:00:00 AM EDT [facility] ([facility]) OFFICE OUTPATIENT VISIT 15 MINUTES 08/18/2020 12:00:00 AM EDT [facility] ([facility], ) OFFICE OUTPATIENT VISIT 15 MINUTES 02/26/2020 12:00:00 AM EST [facility] ([facility], ) RADEX FOOT COMPLETE MINIMUM 3 VIEWS 01/03/2020 12:00:0 0 AM EST [facility] ([facility] ) EXC TUMOR SOFT TISSUE THIGH/KNEE SUBFASC <5CM 10/17/19 12:00:00 AM EDT [facility] ([facility], ) Results ID Date Data Source [id number] 10/13/2020 09:45:00 AM EDT [facility] Name Value Range Interpretation Code Description Data Seema rce(s) Supporting Document(s) SARS-CoV-2 RNA Resp Ql CHERYL+probe NOT DETECTED [facility] This lab was ordered by CLAYTON linton and reported by CLAYTON Jimenez. ID Date Data Source [id number] 09/08/2020 03:37:00 PM EDT [facility] ([facility]) Name Value Range Interpretation Code Description Data Seema rce(s) Supporting Document(s) Cyclic citrullinated peptide IgG Ab [Units/volume] in Serum or Plasma 7 units 0-19 [facility] ([facility] <content>Negative <20</con tent>
<content>Weak positive 20 - 39</content>
<content>Moderate positive 40 - 59</content>
<content>Strong positive >59</content>
<content>Performed at: [facility]</content>
<content>[address] [place] [address] [id number]</content>
<content>[employer] Operator Helper: Joseline Garcia MD, Phone: [phone]</content>
<content></content> Rheumatoid Factor Quant Laboratory test [facility] ID Date Data Source [id number] 09/08/2020 03:36:00 PM EDT [facility] ([facility]) Name Value Range Interpretation Code Description Data Seema rce(s) Supporting Document(s) Thyrotropin [Units/volume] in Serum or Plasma by Detec tion limit <= 0.05 mIU/L 1.40 uIU/mL 0.36-3.74 [facility] ([facility] ID Date Data Source [id number] 09/08/2020 03:36:00 PM EDT [facility] ([facility]) Name Value Range Interpretation Code Description Data Seema rce(s) Supporting Document(s) Cholesterol [Mass/volume] in Serum or Plasma 169 mg/dL 131-200 [facility] ([facility]) Cholesterol in HDL [Mass/volume] in Serum or Plasma 44 mg/dL 35-60 [facility] ([facility]) Triglyceride [Mass/volume] in Serum or Plasma 203 mg/dL 30-150 [facility] ([facility]) Cholesterol in LDL [Mass/volume] in Serum or Plasma by calcu lation 84 CALC 50-159 [facility] ([facility]) ID Date Data Source [id number] 09/08/2020 03:36:00 PM EDT [facility] ([facility]) Name Value Range Interpretation Code Description Data Seema rce(s) Supporting Document(s) Urea nitrogen [Mass/volume] in Serum or Plasma 20 mg/dL 7-18 [facility] ([facility]) Creatinine 0.9 mg/dL 0.6-1.3 [facility] ([facility]) Glucose [Mass/volume] in Serum or Plasma 117 mg/dL 74-99 [facility] ([facility]) 100-125 mg/dL PRE-DIABETES/FASTING >126 mg/dL DIABETES/FASTING Sodium [Moles/volume] in Serum or Plasma 140 meq/L 136-145 [facility] ([facility]) Potassium [Moles/volume] in Serum or Plasma 4.0 meq/L 3.5-5.1 [facility] ([facility]) Chloride [Moles/volume] in Serum or Plasma 105 meq/L 98-107 [facility] ([facility]) Carbon dioxide, total [Moles/volume] in Serum or Plasma 31 meq/L 21 -32 [facility] ([facility]) Calcium [Mass/volume] in Serum or Plasma 9.3 mg/dL 8.5-10.1 [facility] ([facility]) Alkaline phosphatase isoenzyme [Units/volume] in Serum or Pl asma 87 mg/dL 46-116 [facility] ([facility]) Total Bilirubin 0.8 mg/dL 0.2-1.0 [facility] ([facility]) Aspartate aminotransferase [Enzymatic activity/volume] in Serum or Plasma 18 U/L 15-37 [facility] ([facility] ) Alanine aminotransferase [Enzymatic activity/volume] in Seru m or Plasma 34 U/L 12-78 [facility] ([facility]) Albumin [Mass/volume] in Serum or Plasma 3.8 g/dL 3.4-5.0 [facility] ([facility]) Proteinase 3 Ab [Units/volume] in Serum 7.0 g/dL 6.4-8.2 [facility] ([facility]) Glomerular filtration rate/1.73 sq M pre dicted among non-blacks [Volume Rate/Area] in Serum or Plasma by Creatinine-based formula (MDRD) Laboratory test result [facility] ([facility] ) A/G Ratio 1.19 CALC 1.00-1.90 [facility] ([facility]) Glomerular filtration rate/1.73 sq M pre dicted among blacks [Volume Rate/Area] in Serum or Plasma by Creatinine-based formula (MDRD) Laboratory test result [facility] ([facility]) <content>CHRONIC KIDNEY DISEASE STAGING PER NKF</content>
<content></content>
<content>STAGE I & II GFR >= 60 NORMAL TO MILDLY DECREASED</content>
<content>STAGE III GFR 30-59 MODERATELY DECREASED</content>
<content>STAGE IV GFR 15-29 SEVERELY DECREASED</content>
<content>STAGE V GFR <15 VERY LITTLE GFR LEFT</content>
<content>ESRD GFR <15 ON ELEMENTARY SCHOOL LIBRARIAN</content>
<content></content> ID Date Data Source [id number] 09/08/2020 03:36:00 PM EDT [facility] ([facility] Name Value Range Interpretation Code Description Data Seema rce(s) Supporting Document(s) Leukocytes [#/volume] in Blood by Automated count 4.7 x10*3/UL 4.1-10 .9 [facility] ([facility]) Hematocrit [Volume Fraction] of Blood by Automated count 35.8 % 3 7.0-51.0 [facility] ([facility]) Erythrocytes [#/volume] in Blood by Automated count 4.07 x10*6/UL 4.2 0-6.30 [facility] ([facility]) Hemoglobin [Mass/volume] in Blood 12.4 g/dL 12.0-18.0 [facility] ([facility]) MCH 30.6 pg 26.0-32.0 [facility] ([facility]) MCV 87.9 fL 80.0-97.0 [facility] ([facility]) MCHC 34.8 g/dL 31.0-38.0 [facility]) Erythrocyte distribution width [Ratio] by Automated count 13.3 % 11.6-13.7 [facility] ([facility]) MPV 8.9 FL 7.8-11.0 [facility]) Platelets [#/volume] in Blood by Automated count 274 x10*3/UL 140-440 [facility] ([facility]) Lymph % 33.9 % 10.0-58.5 [facility]) Mid % 7.7 % 1.7-9.3 [facility]) Neut % 58.4 % 37.0-92.0 [facility]) Lymph # 1.6 x10*3/UL 0.6-4.1 [facility] ([facility]) Mid # 0.4 x10*3/UL 0.1-0.6 [facility] ([facility]) Neut # 2.7 x10*3/UL 2.0-7.8 [facility] ([facility]) ID Date Data Source [id number] 06/05/2020 02:51:00 PM EDT [facility] ([facility]) Name Value Range Interpretation Code Description Data Seema rce(s) Supporting Document(s) Bacteria identified in Urine by Culture Laboratory test result [facility] ([facility]) <content> --------</content>
<content>Run: 06/07/20 0753 INTERFACED REPORT</content>
<content> </content>
<content>Name: Vibha Oscar Age/Sex: 64/F Location: [facility]</content>
<content>Acct: [id number] Unit: [id number] Status: REG REF Room/Bed:</content>
<content>Re06/05/20 Disch: Yeyo Dr: Jose Guerin</content>
<content> </content>
<content></content>
<content>Specimen #: [id number] Ordered : 06/05/20</content>
<content>Collected : 06/05/20 By: OFFICE Received: 06/05/20 By: DERRELL</content>
<content>Source: URINE CC Specimen Description:</content>
<content></content>
<content> </conten t>
<content>Procedure Result</content>
<content> </content>
<content>COLONY COUNT Final</content>
<content>COLONY COUNT LESS THAN 1,000 CFU/ML</content>
<content></content>
<content>URINE CULTURE Final</content>
<content>NO GROWTH NO GROWTH <18 HOURS</ content>
<content>NO GROWTH 42 HOURS</content>
<content></content>
<content></content>
<content>URI NE CULTURE Preliminary (Corrected)</content>
<content>NO GROWTH NO GROWTH <18 HOURS</content>
<content></content>
<content></content>
<content> </content>
<content></content>
<content></content>
<cont ent></content>
<content></content>
<content></content>
<content></content>
<content> END OF REPORT </content>
<content></content> ID Date Data Source [id number] 06/07/2020 07:52:00 AM [facility] Run: 06/07/20 0753 INTERFACED REPORT Name: Vibha Oscar Age/Sex: 64/F Location: [facility] Acct: [id number] Unit: [id number] Status: REG REF Room/Bed: Re06/05/20 Disch: Att Dr: Jose Guerin Specimen #: [id number] Ordered : 06/05/20 Collected : 06/05/20 By: OFFICE Received: 06/05/20 By: DERRELL Source: URINE CC Specimen Description: Procedure Result - COLONY COUNT Final COLONY COUNT LESS THAN 1,000 CFU/ML URINE CULTURE Final NO GROWTH NO GROWTH <18 HOURS NO GROWTH 42 HOURS URINE CULTURE Preliminary (Corrected) NO GROWTH NO GROWTH <18 HOURS END OF REPORT Name Value Range Interpretation Code Description Data Seema rce(s) Supporting Document(s) ID Date Data Source [id number] 06/05/2020 02:50:00 PM EDT [facility] ([facility]) Name Value Range Interpretation Code Description Data Seema rce(s) Supporting Document(s) Clarity of Urine Laboratory test result [facility] ([facility]) Color of Urine Laboratory test result [facility] ([facility]) Specific gravity of Urine 1.015 [facility] NT ([facility]) Blood [Presence] in Urine by Visual Laboratory test result [facility] ([facility]) pH of Urine by Test strip 6.5 [facility] ([facility]) Ua Leuko Laboratory test result [facility] ([facility]) Nitrate [Presence] in Urine Laboratory test result [facility] ([facility]) Ketones [Presence] in Urine by Test strip Laboratory test result [facility] ([facility]) Protein [Presence] in Urine by Test strip Laboratory test result [facility] ([facility]) Bilirubin.total [Presence] in Urine by Test strip Laboratory test res ult [facility] ([facility]) Urobilinogen [Mass/volume] in Urine by Test strip Laboratory test res ult [facility] ([facility]) Glucose [Presence] in Urine Laboratory test result [facility] ([facility]) ID Date Data Source [id number] 03/16/2020 12:00:00 AM EST [facility] Diandra Raza MD Patient Name: VIBHA OSCAR [id number] [facility] 1955[facility] [place] [address] Date of Exam: 03/16/2020#: Fax: [phone] EXAM: ARTHROCENT ASPR & INJ LG JOINT W/O USLEFT SUBTALAR JOINT INJECTION:The procedure was performed by FAUSTINO Burciaga under the generalsupervision of Dr. Dumont.The benefits and risks including, but not limited to pain, infection,bleeding, and anaphylaxis were explained to the patient and informedconsent was obtained.The left subtalar joint was localized using fluoroscopic guidance. Theskin was prepped and draped in a sterile fashion. 1% Lidocaine was usedas a local anesthetic. Using fluoroscopic guidance, a #25 gauge needle wasinserted and advanced into the joint. 1 cc of Omnipaque 300 was injectedto verify placement. 3 cc of a solution containing 2 cc of 1% Lidocaineand 1 cc of Kenalog 40 mg was injected into the joint space. The needlewas then removed.The patient tolerated the procedure well and there were no immediatecomplications.Fluoroscopy time was 9 seconds at 3 pulses/second. This is equal to 1.75seconds continuous fluoroscopy time which is a 75% reduction in radiation.LEILA Bowser/jmcThank you for referring VIBHA OSCAR to our office. Electronically Signed - DEEPTI DUMONT MD 03/17/20 14:05 Name Value Range Interpretation Code Description Data Seema rce(s) Supporting Document(s) ID Date Data Source [id number] 03/16/2020 12:00:00 AM EST [facility] Diandra Raza MD Patient Name: VIBHA OSCAR [id number] [facility] Date [place] : 1955[place] [address] Date of Exam: 03/16/2020#: Fax: [phone] EXAM: ARTHROCENT ASPR & INJ LG JOINT W/O USLEFT SUBTALAR JOINT INJECTION:The procedure was performed by FAUSTINO Burciaga under the generalsupervision of Dr. Dumont.The benefits and risks including, but not limited to pain, infection,bleeding, and anaphylaxis were explained to the patient and informedconsent was obtained.The left subtalar joint was localized using fluoroscopic guidance. Theskin was prepped and draped in a sterile fashion. 1% Lidocaine was usedas a local anesthetic. Using fluoroscopic guidance, a #25 gauge needle wasinserted and advanced into the joint. 1 cc of Omnipaque 300 was injectedto verify placement. 3 cc of a solution containing 2 cc of 1% Lidocaineand 1 cc of Kenalog 40 mg was injected into the joint space. The needlewas then removed.The patient tolerated the procedure well and there were no immediatecomplications.Fluoroscopy time was 9 seconds at 3 pulses/second. This is equal to 1.75seconds continuous fluoroscopy time which is a 75% reduction in radiation.LEILA Bowser/Ange estrada for referring VIBHA OSCAR to our office. Electronically Signed - DEEPTI DUMONT MD 03/17/20 14:05 Name Value Range Interpretation Code Description Data Seema rce(s) Supporting Document(s) ID Date Data Source [id number] 03/07/2020 09:06:00 AM EST [facility] ([facility]) Name Value Range Interpretation Code Description Data Seema rce(s) Supporting Document(s) White Blood Count 5.6 10 4.0-10.0 [facility] ([facility]) Red Blood Count 4.59 10 4.00-5.40 [facility] ([facility]) Hemoglobin 13.3 g/dL 12.0-15.5 [facility] ([facility]) Mean Corpuscular Hemoglobin 29.0 pg 27.0-33.0 [facility] ([facility]) Mean Corpuscular Volume 94.1 fl 80.0-96.0 [facility] ([facility]) Hematocrit 43.2 % 36.0-47.0 [facility] ([facility]) Platelet Count, Automated 263 10 150-450 [facility] NT ([facility]) Red Cell Distribution Width 12.9 % 11.5-14.5 [facility] ([facility]) Mean Corpuscular HGB Conc 30.8 g/dL 32.0-36.5 [facility] NT ([facility]) [place] % 9.9 % 0.0-5.0 [facility]) Neutrophils % 63.4 % 36.0-66.0 [facility] ([facility]) Lymph % 24.9 % 24.0-44.0 [facility]) Immature Granulocyte % 0.2 % 0-3.0 [facility] ([facility]) Eos % 1.1 % 0.0-3.0 [facility]) Baso % 0.5 % 0.0-1.0 [facility]) Neutrophils # 3.5 10 1.5-8.5 [facility] ([facility]) Nucleated Red Blood Cell % 0.0 % 0-0 [facility] ([facility]) [place] # 0.6 10 0.0-0.8 [facility] Eos # 0.1 10 0.0-0.5 [facility] ([facility]) Lymph # 1.4 10 1.5-5.0 [facility] ([facility]) Baso # 0.0 10 0.0-0.2 [facility] ([facility]) ID Date Data Source [id number] 03/07/2020 09:06:00 AM EST [facility] ([facility]) Name Value Range Interpretation Code Description Data Seema rce(s) Supporting Document(s) Blood Urea Nitrogen 20 mg/dL 7-18 [facility] ([facility]) Glucose, Fasting 109 mg/dL 70-100 [facility] ([facility]) Creatinine For GFR 0.82 mg/dL 0.55-1.30 [facility] ([facility]) Sodium Level 143 meq/L 136-145 [facility] ([facility]) Glomerular Filtration Rate Laboratory test result [facility] ([facility]) <content>Units are mL/min/1.73 m2</content>
<content></content>
<content>Chronic Kidney Disease Staging per NKF:</content>
<content></content>
<content>Stage I & II GFR >=60 Normal to Mildly Decreased</content>
<content>Stage III GFR 30- 59 Moderately Decreased</content>
<content>Stage IV GFR 15-29 Severely Decreased</content>
<content>Stage V GFR <15 Very Little GFR Left</content>
<content>ESRD GFR <15 on ELEMENTARY SCHOOL LIBRARIAN</content>
<content></content> Chloride Level 109 meq/L 98-107 [facility] ([facility]) Carbon Dioxide Level 29 meq/L 21-32 [facility] ([facility]) Potassium Serum 4.4 meq/L 3.5-5.1 [facility] ([facility]) Calcium Level 8.6 mg/dL 8.8-10.2 [facility] ([facility]) Anion Gap 5 meq/L 8-16 [facility] ([facility]) Ast/Sgot 20 U/L 7-37 [facility] ([facility]) Bilirubin,Total 1.3 mg/dL 0.2-1.0 [facility] ([facility]) Alt/SGPT 34 U/L 12-78 [facility] ([facility]) Alkaline Phosphatase 82 U/L 45-117 [facility] ([facility] Total Protein 6.8 GM/DL 6.4-8.2 [facility] ([facility]) Albumin/Globulin Ratio 1.3 1.2-2.2 [facility] ([facility]) Albumin 3.8 GM/DL 3.2-5.2 [facility] ([facility]) ID Date Data Source [id number] 01/20/2020 12:00:00 AM EST [facility] Diandra Raza MD Patient Name: VIBHA OSCAR [id number] [facility] Date [place] : 1955[place] [address] Date of Exam: 01/20/2020#: Fax: [phone] EXAM: MRI ANKLE LEFT WITHOUT CONTRASTCLINICAL INFORMATION: Atraumatic chronic pain x 1 year.3T multiplanar MRI imaging of the left ankle was obtained using varioussequences.There are no prior left ankle MRI's for comparison.The tendons of the tibialis anterior, extensor hallucis and extensordigitorum muscles are intact and of normal appearing low signal throughout. The tendons of the tibialis posterior, flexor digitorum and flexorha llucis muscles are intact and of normal appearing low signal throughout.The Achilles tendon is intact and of normal appearing low signalthroughout. The peroneal tendons are intact and of normal appearing lowsignal throughout. There is no abnormal peritendinous fluid. The anteriorand posterior/inferior tibiofibular ligaments are intact. The anterior andposterior talofibular ligaments are intact. The calcaneofibular ligamentis intact. The ligaments within the sinus tarsi are somewhat redundant andthere is less than optimal preservation of the sinus tarsi fat signal.There appears to be narrowing of the sinus tarsi. There is significantdegenerative change seen involving the talonavicular joint which ismarkedly narrowed and irregular with subchondral sclerosis and subchondralcyst formation seen in conjunction with marginal osteophytosis. There isirregular narrowing of all subtalar joints. There is abnormal cysticdegenerative change and abnormal rounding involving the lateral talarprocess seen in conjunction with cystic degenerative change in the oscalcis deep to the angle of [place]. There is lateral osteophytosisinvolving the lateral hindfoot and seen in conjunction with osteophytosisof the lateral talar base along with the chronic changes involving thelateral talar process. There is a significant appearing heel valgusdeformity. Significant appearing degenerative changes are seen throughoutthe mid-foot with asymmetric joint space narrowing and osteophytosis. Thedeltoid ligament complex is intact. There is no evidence of an acutefracture. The plantar soft tissues are within normal limits. There is nofrank joint effusion. The mortise is intact and although there is chondralthinning of the talar dome and tibial plafond, there is no abnormalchondral or subchondral signal involving those areas.IMPRESSION:1. There is evidence of lateral hindfoot impingement as described abovewith related findings.2. Rather excessive appearing degenerative changes involving the mid-foot,particularly the talonavicular joint as described above.3. There is no evidence of acute internal derangement.4. Other findings as described above.Accredited by the [employer] in MR.JENI Grace/Ange estrada for referring VIBHA OSCAR to our office. Electronically Signed - FLORIDA LYN DO 01/20/20 16:26 Name Value Range Interpretation Code Description Data Seema rce(s) Supporting Document(s) ID Date Data Source PAP REQUEST FOR SERVICE 01/07/2020 12:00:00 AM EST [email or web address] ([facility]) Name Value Range Interpretation Code Description Data Seema rce(s) Supporting Document(s) PAP REQUEST FOR SERVICE [email or web address] ( [facility]) ID Date Data Source [id number] 10/23/2019 04:02:21 PM EDT [facility] Name Value Range Interpretation Code Description Data Seema rce(s) Supporting Document(s) Progress Note [facility] APKCJj8cDiWJOrLa10/OFCqnZVAyo2GvQFzuUCn1NJdvWTMqS9ZsOQF2nC2jUJK9ZDyEXnZcPeZeEIMf lbm [file] ICAgICAgICAgICAgICAgICAgICAgICAgICAgICAgICAgICAgICAgICAgICAgICAgICAgICAgICAgICAg ICAgICAgICAgICAgICAgICAgICAgICAgICAgICAgICAgICAgICAgDQogICAgICAgICAgICAgICAgICAg ICAgICAgICAgICAgICAgICAgICAgICAgICAgICAgIC AgICAgICAgICAgICAgICAgICAgICAgICAgICAgICAgICAgICAgICAgICAgICAgICAgDQogICAgICAgIC AgICAgICAgICAgICAgICAgICAgICAgICAgICAgICAgICAgICAgICAgICAgICAgICAgICAgICAgICAgIC AgICAgICAgICAgICAgICAgICAgICAgICAgICAgICAg DQogICAgICAgICAgICAgICAgICAgICAgICAgICAgICAgICAgICAgICAgICAgICAgICAgICAgICAgICAg ICAgICAgICAgICAgICAgICAgICAgICAgICAgICAgICAgICAgICAgICAgDQogICAgICAgICAgICAgICAg ICAgICAgICAgICAgICAgICAgICAgICAgICAgICAgIC AgICAgICAgICAgICAgICAgICAgICAgICAgICAgICAgICAgICAgICAgICAgICAgICAgICAgDQogICAgIC AgICAgICAgICAgICAgICAgICAgICAgICAgICAgICAgICAgICAgICAgICAgICAgICAgICAgICAgICAgIC AgICAgICAgICAgICAgICAgICAgICAgICAgICAgICAg ICAgDQogICAgICAgICAgICAgICAgICAgICAgICAgICAgICAgICAgICAgICAgICAgICAgICAgICAgICAg ICAgICAgICAgICAgICAgICAgICAgICAgICAgICAgICAgICAgICAgICAgICAgDQogICAgICAgICAgICAg ICAgICAgICAgICAgICAgICAgICAgICAgICAgICAgIC AgICAgICAgICAgICAgICAgICAgICAgICAgICAgICAgICAgICAgICAgICAgICAgICAgICAgICAgDQogIC AgICAgICAgICAgICAgICAgICAgICAgICAgICAgICAgICAgICAgICAgICAgICAgICAgICAgICAgICAgIC AgICAgICAgICAgICAgICAgICAgICAgICAgICAgICAg ICAgICAgDQogICAgICAgICAgICAgICAgICAgICAgICAgICAgICAgICAgICAgICAgICAgICAgICAgICAg RQLwEGObARWkEERoEYKkFBCoAZUiKRAwIPKtSAYgXDJnDPFxEGFhMPNoNAHmHSUkRRm3B1ayCKFuGQSd AV7sIYg1Bl8+HXiZMuUiILY6xsXdyD0TZW0ry4ZsHN psDBDhn5PuBTk7TL0QLLJtEEoiZF3YVAnaid0FNAKtZXUpzKJBt2juUeKdQGI3XAUaMueeXP2XYZTnK2 trzsNoINZaGKSCYIohNCXJSYvhMQHQVDMuIRHvFlNzYaMgTHQoWPJnVUWOJZ1POjKhY9KjiT81UOEMIr 4+USxebiTmUhdGYhR8DUOon0AdMLh8BG2THXQbDval h3EiUjGmJSZGJCheFO3WGCC6TCB3HGStLh9OTJTaV868irHpHH9HNb1JVnHbPX1tcw1KIzGmPARdYfyE Jqn7EGslEZ7QoABvWOjLwe7zmnEwxePDp6VcnhProDGYHEVjmmK2JK0uD30oqYcfRHKFGYR9OVhhOb0y KOJuDEYkZiR9DNJAHU7OVPYtXDGlcEDkGTYzYNTDRY 9KQStpPYY1XQKjwnWfzHGuKLitJZ9ZRDRnxmWaKdNsMJFBXAf+Hf0QLX9cq3ZbZQxmDnRtKS5hbc8VZT sSZwNcQ5S2fDXlN4T0BBwcAa2DEURfUQXvPnNkTSCYCOesZO5GCL5dgxW2SN3KsZRlEYSbUVGikHQlJG j2A23bxSLzPDtqJO8TECK+Naye+Le7AEEJuMSQpFYRv CaHbDDWFUfNaE5AmP3YWz6GdO5KqSE64cBoihqVwSQqkYM9GHY6fQSEvLYQMLT6ZwAOleM4ngsRzCRMs HUIJHlQlI36yyRLtLSIhSUI4HGHuHk4VIPAsF7WzhyAznOtigoLjVVArWAZTZA8SAMdwwuUcpMHlcZtq JP50gKcdJA1GGy1AJiIoPS4dig6OaRVvCn3CQXIbFP 1BJJRcSZPuCGTaQQO6SLSdImWgPYziUCRjRLVsNTR6WWIyFDLyJA9SPtXdNCGqUnM0ZBwfOSPyDJWrbn 3YTUQyPNQxIiMiLMDxLKHfGRIdFIgkGWMwHZTrSOB4FFWmMOObET4WRtKbQVZvJAZvDYLtHVLaRMLwnr 2UXQLoCAKgJgBmYZQcAZUgYWWiKKqdXUTcIIA6Mmm5 PCMtBUBiNS0LZaDgRDAvIXP4GZHkEGKwUCIggl0UHNTxKVSbMDF2MBShZGCkVUHdYFpmSHTwCHR0IKf4 KKDgLZFcVM8MXsOuZCHtKRG2RtloBULlAHCezh9MDYZyPTEmCqfvPJEnOUVoZCAeYDjcZLHhRRW1XML1 GJFyLEVbLK0XIxHlQAFuCCD1GiIhNLSuUQPfgx4XJU YwUSHbPiN6CNRpUUAlYNEaKNwiHGQbRAV8UjmzUOEhDGPoET2NUfUjKPTqPKv1IWRqGMXnHVAlch0UXP VkFERbTbwmNPHyQCAgIQCtJFsbKMEkLNJ4ANBtCSFqUOEzKB3TJeRlIXEsLVkqHYRrTWVgREDiju6SIH LjUBMzLEQ3JuWqCJLfXPLmMIjbOMQyJFT2DJflZKQe IPEwAN0QTdYfLGOrIiG0ASZoBIOmRDSxan6PHMFrECGyPFAzZIPjGFChOVHzMYmbKVZuOXFdPRJ9JAIz RSAtQY2NWcXmEMBmPaR8RXDjZQLnILRxft6WAZNoCDIpNBqmYKHtUETkJFMvYPaqBQUhDNHcIja5CFOq OITfTD1KPqXaSTLvUoT0LPOfLLYlPVZutb9MQUVzTJ YuZlRwCbMaUGHqXGErOAqiWEWdTSF7AQjmOFNsMWUwUD0ZAiWhERMeMuFmKQvrKXKyFVYafy2WEAFuMT ZpKAAgKlGqWZYtJTCbQShuYILoLHL1XVN4AMNsMLMwWE9UIvDtRKRoTnJpUVVnDCOpOIShdo8OQDZoIE NnHcKqHQWwJRAlXBLqKPpgCGGwURZ1KRJoGJQeHNWh QD4JZqVuRJjfRMCHWfk6LSazX7a6JXKuMJ5JM0Ifj8QbCfezCSAUWKquFC4nczHnQAEvHy5VR1jODofs Cri1BDhzNyCkOhZjS8KmO6QwWEW5MGReHXXqNBq5ES7zIGRaLWW4ZDD0NHTqRsXvAlO7RTHvNJoiTwPe YrMrXhwmArMqWC0MCw6NWyA1KXL0tPWmGc5OOpW3WGLTToMgTY3KETw= ID Date Data Source [id number] 10/17/2019 09:50:00 AM EDT MEDENT ([facility], ) Name Value Range Interpretation Code Description Data Seema rce(s) Supporting Document(s) Surgical pathology study Laboratory test result MEDENT ([facility]) FINAL DIAGNOSIS Skin, right inner thigh, lipoma, excision: Mature adipose tissue, consistent with lipoma. 10/21/2019 - 0942 CLINICAL DIAGNOSIS Lipoma right inner thigh 10/18/2019 - 1457 GROSS DIAGNOSIS Received in formalin labeled "right inner thigh lipoma" consists of fragments of adipose tissue, 1.2 x 1.0 x 0.3 cm in aggregate. The specimen is grossly unremarkable. All in one. -OA 10/18/2019 - 1457 Signed ACE MACKENZIE MD 10/21/2019 0943 ID Date Data Source [id number] 10/11/2019 12:00:00 AM EDT [facility] Michelle Pham MD Patient Name: CECILY OSCAR [address] Date of : 1955[place] [id number]- Date of Exam: 10/11/2019#: Fax: [phone] EXAM: MRI LUMBAR SPINE WITHOUT CONTRASTPROCEDURE INFORMATION:Exam: MR Lumbar Spine Without Contrast.Exam date and time: 10/11/2019 4:36 PM Age: 63 years oldClinical indication: Low back pain; Prior surgery; Surgery date: 6+ monthsTECHNIQUE: Imaging protocol: Multiplanar magnetic resonance images of thelumbar spine without intravenous contrast.COMPARISON: MRI LUMBAR SPINE WITHOUT CONTRAST 03/13/2017 4:56 PMFINDINGS: Surgical hardware between the L4 and L5 spinous processes.Straightening of the lumbar lordosis. Lumbar vertebral body heights aremaintained. Mild Modic type 1 edematous degenerative endplate change atL3-L4. No evidence of acute fracture. No cord compression. No abnormal cordsignal. Conus medullaris terminates at the L1 level. 0.2 cm grade 1anterolisthesis of L1 on L2. 0.3 cm retrolisthesis of L4 on L5.Paravertebral soft tissues are unremarkable.L1-L2: Broad-based disc bulge and facet hypertrophy causes mild canalnarrowing and mild bilateral foraminal narrowing.L2-L3: Broad-based disc bulge and facet hypertrophy causes mild canalnarrowing with mild left and moderate right foraminal narrowing.L3-L4: Broad-based disc bulge and facet hypertrophy causes mild to moderatecanal narrowing. Moderate bilateral foraminal narrowing.L4-L5: Broad-based disc bulge and facet hypertrophy causes moderate canalnarrowing. Effacement of the left lateral recess with likely impingementupon the traversing left L5 nerve root. Moderate right and severe leftforaminal narrowing. Likely impingement upon the exiting left L4 nerveroot.L5-S1: Broad-based disc bulge and facet hypertrophy causes mild canalnarrowing. Moderate right and moderate to severe left foraminal narrowing.IMPRESSION:Multilevel advanced spondylotic changes of the lumbar spine, as detailedabove.Thank you for allowing us to participate in the care of your patient.Dictated and Authenticated by: John Georges MD 10/11/2019 11:49 PMEastern Time ([place] & Susi)VradV/Catherinek you for referring VIBHA OSCAR to our office. Electronically Signed - [facility] 10/14/19 9:02 Name Value Range Interpretation Code Description Data Seema rce(s) Supporting Document(s) Procedure Social History Code Duration Value Status Description Data Source(s ) Smoking 08/18/2020 12:00:00 AM EDT Patient has never smoked co mpleted Patient has never smoked MEDENT ([facility], ) Smoking 06/05/2020 12:00:00 AM EDT Patient has never smoked co mpleted Patient has never smoked [facility] ([facility] Alcohol intake 10/23/2019 12:00:00 AM EDT Current drinker of al cohol (finding) completed Current drinker of alcohol (finding) [facility] Tobacco use and exposure 10/23/2019 12:00:00 AM EDT Never used co mpleted Never used [facility] Smoking 10/23/2019 12:00:00 AM EDT Never smoker completed Never s [facility] Vital Signs ID Date Data Source UNK Name Value Range Interpretation Code Description Data Source(s) Systolic blood pressure 132 mm[Hg] 132 mm[Hg] M EDENT ([facility]) Diastolic blood pressure 82 mm[Hg] 82 mm[Hg] MEDENT ([facility]) Body weight 205.00 [lb_av] 205.00 [lb_av] MEDEN T ([facility]) Respiratory rate 18 /min 18 /min MEDENT ( [facility]) Body mass index (BMI) [Ratio] 33.5 kg/m2 33.5 k g/m2 MEDENT ([facility]) Systolic blood pressure 110 mm[Hg] 110 mm[Hg] M EDENT ([facility]) RT Arm Diastolic blood pressure 64 mm[Hg] 64 mm[Hg] MEDENT ([facility]) RT Arm Heart rate 68 /min 68 /min MEDENT ([facility]) Body height 66.5 [in_i] 66.5 [in_i] MEDENT ([facility]) 5'6.50" Body weight 211.00 [lb_av] 211.00 [lb_av] MEDEN T ([facility]) Body height 67 [in_i] 67 [in_i] MEDENT ([facility]) 5'7" Body weight 204.00 [lb_av] 204.00 [lb_av] MEDEN T ([facility]) Body mass index (BMI) [Ratio] 31.9 kg/m2 31.9 k g/m2 [facility] ([facility]) [place] body weight 135 [lb_av] 135 [lb_av] MEDEN T ([facility]) Body weight 92.534 kg 92.534 [facility] Body surface area Derived from formula 2.04 m2 2.04 m2 [facility] ([facility]) Systolic blood pressure 120 mm[Hg] 120 mm[Hg] M EDENT ([facility]) Diastolic blood pressure 68 mm[Hg] 68 mm[Hg] [facility] ([facility]) Heart rate 73 /min 73 /min [facility] ([facility]) Oxygen saturation in Arterial blood by Pulse oximetry 97 % 97 % [facility] ([facility]) Body surface area Derived from formula 2.01 m2 2.01 m2 [facility] Systolic blood pressure 138 mm[Hg] 138 mm[Hg] M EDENT ([facility]) Diastolic blood pressure 64 mm[Hg] 64 mm[Hg] [facility] ([facility]) Heart rate 74 /min 74 /min [facility] ([facility] Body temperature 98.2 [degF] 98.2 [degF] [facility] ([facility]) Oxygen saturation in Arterial blood by Pulse oximetry 97 % 97 % [facility] ([facility] Body height 67 [in_i] 67 [in_i] [facility] ([facility]) 5'7" Body weight 198.00 [lb_av] 198.00 [lb_av] MEDEN T ([facility] Body weight 89.813 kg 89.813 kg [facility] ([facility]) Body mass index (BMI) [Ratio] 31.0 kg/m2 31.0 k g/m2 [facility] ([facility]) Systolic blood pressure 120 mm[Hg] 120 mm[Hg] M EDENT ([facility]) Diastolic blood pressure 82 mm[Hg] 82 mm[Hg] MEDENT ([facility]) Heart rate 83 /min 83 /min MED[facility] ([facility]) Body height 66.5 [in_i] 66.5 [in_i] MEDENT ([facility]) 5'6.50" Oxygen saturation in Arterial blood by Pulse oximetry 94 % 94 % MED[facility] ([facility]) Air Systolic blood pressure 118 mm[Hg] 118 mm[Hg] M EDENT ([facility], ) Diastolic blood pressure 72 mm[Hg] 72 mm[Hg] MED[facility] ([facility], ) Heart rate 62 /min 62 /min MEDENT ([facility], ) Oxygen saturation in Arterial blood by Pulse oximetry 97 % 97 % MED[facility] ([facility], ) Body temperature 97.9 [degF] 97.9 [degF] MED[facility] ([facility], ) Body height 67 [in_i] 67 [in_i] MEDENT ([facility]) 5'7" Body weight 207.38 [lb_av] 207.38 [lb_av] MEDEN T ([facility]) Body mass index (BMI) [Ratio] 32.5 kg/m2 32.5 k g/m2 [facility] ([facility]) [place] body weight 135 [lb_av] 135 [lb_av] MEDEN T ([facility]) Body weight 94.065 kg 94.065 kg [facility] ([facility]) Body surface area Derived from formula 2.05 m2 2.05 m2 [facility] ([facility]) Body weight 202 [lb_av] 202 [lb_av] W1 ([facility]) Body height 66.25 [in_i] 66.25 [in_i] W1 ([facility]) Body mass index (BMI) [Ratio] 32.35 kg/m2 32.35 kg/m2 eCW1 ([facility]) Systolic blood pressure 128 mm[Hg] 128 mm[Hg] e CW1 ([facility]) Diastolic blood pressure 72 mm[Hg] 72 mm[Hg] eCW1 ([facility]) Systolic blood pressure 126 mm[Hg] 126 mm[Hg] M EDENT ([facility]) Diastolic blood pressure 74 mm[Hg] 74 mm[Hg] MED[facility] ([facility]) Heart rate 70 /min 70 /min [facility] Body temperature 96.8 [degF] 96.8 [degF] [facility] ([facility]) Respiratory rate 16 /min 16 /min [facility] ( [facility]) Oxygen saturation in Arterial blood by Pulse oximetry 95 % 95 % [facility] ([facility]) Body temperature 96.9 [degF] 96.9 [degF] [facility] ([facility] ) Body height 67 [in_i] 67 [in_i] [facility] 5'7" Body temperature 97.6 [degF] 97.6 [degF] [facility] Body weight 194.00 [lb_av] 194.00 [lb_av] MEDEN T ([facility] ) Body mass index (BMI) [Ratio] 30.4 kg/m2 30.4 k g/m2 [facility] Systolic blood pressure 134 mm[Hg] 134 mm[Hg] A THENA ([facility]) Diastolic blood pressure 75 mm[Hg] 75 mm[Hg] JORY ([facility]) Systolic blood pressure 145 mm[Hg] 145 mm[Hg] M EDENT ([facility], ) Diastolic blood pressure 83 mm[Hg] 83 mm[Hg] MEDENT ([facility], ) Heart rate 75 /min 75 /min [facility] ([facility], ) Body height 67 [in_i] 67 [in_i] [facility] ([facility], ) 5'7" Body weight 196.12 [lb_av] 196.12 [lb_av] [facility] Body mass index (BMI) [Ratio] 30.7 kg/m2 30.7 k g/m2 [facility] ([facility], ) Body weight 88.962 kg 88.962 kg [facility] ([facility], ) ID Date Data Source [id number] 10/23/2019 03:16:33 PM [facility] Name Value Range Interpretation Code Description Data Source(s) WEIGHT RECORDED 197.6 lb 197.6 lb [facility] Body height Measured 67 in 67 in [facility]
--- OUTSIDE RECORDS SUMMARY | 2020-12-07 13:50 | CCD | Continuity of Care Document ---
Author Author Vibha [facility] Organization Unknown Address [address] [place] [address] Phone [phone] Care Team Providers Care Poultry Farm Worker Name Role Phone JdNiurka D.O AUTM [phone] Problems Description No Information Available Social History Type Date Description Comments Sex Unknown ETOH Use Rarely consumes alcohol Tobacco Use Start: Unknown Patient has never smoked Sun Exposure moderate amount of sun exposure Sun Exposure Tanning bed - Has used in past. No longer using. Sun Exposure Has never experienced blistering from sunburns Sun Exposure Uses > 30 SPF Allergies, Adverse Reactions, Alerts Active Allergies Reaction Severity Comments Date Bactrim 07/24/2019 Medications Active Medications SIG Qnty Indications Ordering Provide r Date Clobetasol Propionate 0.05% Shampo o apply to scalp to dry scalp,let sit 15 minutes then rinse out 354ml L73. 8 Vanessa Barone, Moon 07/24/2019 Lipitor Unknown Losartan Potassium Unknown Gabapentin Unknown Tizanidine HCL Unknown Zyrtec Allergy Unknown Imitrex Unknown Immunizations Description No Information Available Vital Signs Date Vital Result Comment 09/09/2020 4:51pm BP Systolic 132 mmHg BP Diastolic 82 mmHg Weight 205.00 lb Respiratory Rate 18 /min 09/04/2019 4:35pm BP Systolic 115 mmHg BP Diastolic 80 mmHg Body Temperature 98.6 F Results Description No Information Available Procedures Date Code Description Status 09/09/2020 51997 Office/Outpatient Established Mo d MDM 30-39 Min Completed Medical Devices Description No Information Available Encounters Type Date Location Provider Dx Diagnosis Office Visit 09/09/2020 5:00p Main Office [facility] L73. 8 Other specified follicular disorders L82.1 Other seborrheic keratosis D18.01 Hemangioma of skin and subcu taneous tissue L81.4 Other melanin hyperpigmentat ion Z12.83 Encounter for screening for malignant neoplasm of skin Assessments Date Code Description Provider 09/09/2020 L73.8 Other specified follicular disor ders [facility] 09/09/2020 L82.1 Other seborrheic keratosis [facility] 09/09/2020 D18.01 Hemangioma of skin and subcutane ous tissue [facility] 09/09/2020 L81.4 Other melanin hyperpigmentation [facility] 09/09/2020 Z12.83 Encounter for screening for jorge gnant neoplasm of skin [facility] Plan of Treatment Future Appointment(s):* 09/09/2021 10:00 am - BLAYNE Stone at Main Office 09/09/2020 - [facility]* L73.8 Other specified follicular disorders* Comments:* Stable.Continue Clobetasol Propionate 0.05% shampoo.Discussed topical steroid safety.Discussed not to over use.Call with problems. * L82.1 Other seborrheic keratosis* Comments:* Reassurance. * D18.01 Hemangioma of skin and subcutaneous tissue* Comments:* Reassurance. * L81.4 Other melanin hyperpigmentation* Comments:* ReassuranceDiscussed that solar lentignes appear from the sun that was received years agoSunscreen use and sun protection discussed. * Z12.83 Encounter for screening for malignant neoplasm of skin* Comments:* See above. * Follow up:* Yearly/PRN - [facility] Functional Status Description No Information Available Mental Status Description No Information Available Referrals Description No Information Available
--- OUTSIDE RECORDS SUMMARY | 2020-12-07 13:50 | CCD | Continuity of Care Document ---
Author Author Vibha CHUNG Organization Unknown Address [address] [facility] [address] [place] [address] Phone [phone] Care Team Providers Care River Guide Name Role Phone Niurka Chung DO AUTM Unavailable Problems Active Problems Provider Date Arthralgia of the ankle and/or foot Niurka Chung DO Onse t: 08/23/2011 Hyperlipidemia Niurka Chung DO Onset: 08/23/2011 Migraine Niurka Chung DO Onset: 08/23/2011 Varicose veins of lower extremity Niurka Chung DO Onset: 04/10/2012 Social History Type Date Description Comments Sex Unknown Tobacco Use Start: Unknown Never Smoked Cigarettes ETOH Use Occasionally consumes alcohol Tobacco Use Start: Unknown Patient has never smoked Allergies, Adverse Reactions, Alerts Active Allergies Reaction Severity Comments Date Bactrim hives 08/23/2011 Inactive Allergies NKDA 04/01/2010 Medications Active Medications SIG Qnty Indications Ordering Provide r Date Voltaren 1% Gel apply 2 grams to affected area two times a day times a day patient can apply to affected areas 50gm Niurka Chung DO 09/08/2020 Tylenol 8 Hour Arthritis Pain 650mg Tablets ER 1 pill every 8 hours as needed for pain 90tabs Niurka Chung DO 03/09/2020 Phentermine HCL 30mg Capsules 1 by mouth every day 30caps Niurka Chung DO 09/10/2019 Vitamin D 1000Unit Tablets Niurka Chung DO 03/08/2019 Magnesium 400mg Tablets 1 by mouth every night at bedtime Niurka Chung DO 02/22/2018 Coq10 100mg Capsules 1 by mouth every day Niurka Chung DO 02/22/2018 Sandie Allergy 180mg Tablets 1 by mouth every hs 30tabs Niurka Chung DO 11/10/2017 Viactiv [id number]-Unt-mcg Chewt abs 1-2 every day by mouth Niurka Chung,DO 11/10/2017 Losartan Potassium 50mg Tablets 1 by mouth every day 90tabs Niurka Chung,DO 09/08/2017 Flonase Allergy Relief 50mcg/Act Suspension instill 1 spray into each nostril two times a day as needed 16gm Niurka ChungDO 11/24/2016 Lasix 20mg Tablets 1 by mouth every day as needed edema 90tabs Niurka ChungDO 12/08/2015 Gabapentin 300mg Capsules 1 po qam and 1 po qhs (new order) 180caps Niurka Chung,DO 6 Lipitor 10mg Tablets take one tablet by mouth every day 90tabs Niurka Chung,DO 06/15/2015 Imitrex 100mg Tablets take 1 tablet by mouth as needed for migraine may repeat in 2 hours (maximum daily dose =2) 30tabs Niurka ChungDO 04/01/2010 Tizanidine HCL 4mg Capsules 1/2 -1 by mouth three times a day as needed muscle spasms Unknown Azelastine HCL (Nasal) 0.1% Soluti on two sprays in each nostril once daily 60ml Niurka ChungDO Allergy gtts 3 gtts sl bid Unknown 0 Meloxicam 7.5mg Tablets 1 by mouth every day Unknown Immunizations CPT Code Status Date Vaccine Lot # [id number] Given 01/26/2016 Fluvirin Virus Vaccine [id number] Given 10/19/2015 Zoster Vaccine [id number] Refused 12/27/2016 Influenza Vaccin e Quadrivalent Preser/Antibiotic Free Im Use Vital Signs Date Vital Result Comment 09/08/2020 3:11pm BP Systolic 110 mmHg RT Arm BP Diastolic 64 mmHg RT Arm Heart Rate 68 /min Height 66.5 inches 5'6.50" Weight 211.00 lb BMI (Body Mass Index) 33.5 kg/m2 03/09/2020 2:02pm BP Systolic 120 mmHg BP Diastolic 82 mmHg Heart Rate 83 /min Height 66.5 inches 5'6.50" O2 % BldC Oximetry 94 % RM Air Results Test Acquired Date Facility Test Result H/L Range Note Laboratory test finding 09/08/2020 [facility] [address] [place] [address] [phone] Cyclic Citrullinated Peptide Igg <pending> Rheumatoid Factor Quant < 10.0 IU/mL Normal <15.0 Complete Blood Count 09/08/2020 [facility] Expressive Art Therapist: [place] [address] [phone] WBC 4.7 x10*3/UL 4.1 - 10.9 RBC 4.07 x10*6/UL Low 4.20 - 6.30 Hemoglobin 12.4 g/dL 12.0 - 18.0 Hematocrit 35.8 % Low 37.0 - 51.0 MCV 87.9 fL 80.0 - 97.0 MCH 30.6 pg 26.0 - 32.0 MCHC 34.8 g/dL 31.0 - 38.0 RDW 13.3 % 11.6 - 13.7 PLT 274 x10*3/UL 140 - 440 MPV 8.9 FL 7.8 - 11.0 Lymph % 33.9 % 10.0 - 58.5 Mid % 7.7 % 1.7 - 9.3 Neut % 58.4 % 37.0 - 92.0 Lymph # 1.6 x10*3/UL 0.6 - 4.1 Mid # 0.4 x10*3/UL 0.1 - 0.6 Neut # 2.7 x10*3/UL 2.0 - 7.8 Comprehensive Chem Profile 09/08/2020 [facility] Expressive Art Therapist: [place] [address] [phone] Glucose 117 mg/dL High 74 - 99 1 BUN 20 mg/dL High 7 - 18 Creatinine 0.9 mg/dL 0.6 - 1.3 Sodium 140 mEq/L 136 - 145 Potassium 4.0 mEq/L 3.5 - 5.1 Chloride 105 mEq/L 98 - 107 Carbon Dioxide 31 mEq/L 21 - 32 Calcium 9.3 mg/dL 8.5 - 10.1 Alk. Phosphatase 87 mg/dL 46 - 116 Total Bilirubin 0.8 mg/dL 0.2 - 1.0 Ast (Sgot) 18 U/L 15 - 37 Alt (SGPT) 34 U/L 12 - 78 Albumin 3.8 g/dL 3.4 - 5.0 Total Protein 7.0 g/dL 6.4 - 8.2 A/G Ratio 1.19 CALC 1.00 - 1.90 GFR >= 60 mL/min >60 GFR >= 60 mL/min >60 2 Lipid Profile 09/08/2020 [facility] Expressive Art Therapist: Dr [place]ul [place] [id number] [phone] Cholesterol 169 mg/dL 131 - 200 Triglycerides 203 mg/dL High 30 - 150 HDL Cholesterol 44 mg/dL 35 - 60 LDL (Calculated) 84 CALC 50 - 159 Laboratory test finding 09/08/2020 [facility] Expressive Art Therapist: Dr Raul [place], [place] [id number] [phone] Thyroid Stimulating Hormone 1.40 uIU/mL 0.3 6 - 3.74 1 100-125 mg/dL PRE-DIABET ES/FASTING >126 mg/dL DIABETES/FASTING 2 CHRONIC KIDNEY DISEASE STAGI NG PER NKF STAGE I & II GFR >= 60 NORMAL TO MILDLY DECREASED STAGE III GFR 30-59 MODERATELY DECREASED STAGE IV GFR 15-29 SEVERELY DECREASED STAGE V GFR <15 VERY LITTLE GFR LEFT ESRD GFR <15 ON LIBRARY SERVICES DEAN Procedures Date Code Description Status 12/13/2018 [id number] Bone Mineral Density Test Comple joyce 11/23/2018 [id number] Diabetic Foot Exam Completed 11/12/2018 [id number] Colonoscopy Completed 11/09/2018 [id number] Colonoscopy Completed 10/07/2016 [id number] Mammogram Completed 11/19/2014 [id number] Mammogram Completed 10/14/2011 [id number] Mammogram Completed 05/03/2010 [id number] Colonoscopy Completed 04/14/2008 [id number] Mammogram Completed 02/20/2008 [id number] Mammogram Completed 09/11/2006 [id number] Mammogram Completed 10/21/2004 [id number] Mammogram Completed 10/13/2003 [id number] Mammogram Completed 02/25/2002 [id number] Mammogram Completed 09/22/1999 [id number] Mammogram Completed Medical Devices Description No Information Available Encounters Description No Information Available Assessments Date Code Description Provider 09/08/2020 M25.552 Pain of left hip joint Niurka caraballo DO 09/08/2020 I10 Essential (primary) hypertension Niurka Chung DO 09/08/2020 M48.062 Spinal stenosis, lumbar region w ith neurogenic claudication Niurka Chung DO 09/08/2020 M48.02 Spinal stenosis, cervical region Niurka Chung DO 09/08/2020 M25.50 Pain in unspecified joint Niurka Chung DO Plan of Treatment Future Appointment(s):* 03/16/2021 10:40 am - Niurka Chung DO at [facility] 09/08/2020 - Niurka Chung DO* M25.552 Pain of left hip joint * I10 Essential (primary) hypertension * M48.062 Spinal stenosis, lumbar region with neurogenic claudication * M48.02 Spinal stenosis, cervical region * M25.50 Pain in unspecified joint * All * New Medication:* Voltaren 1 % - apply 2 grams to affected area two times a day times a day patient can apply to affected areas Functional Status Description No Information Available Mental Status Description No Information Available Referrals Description No Information Available
--- OUTSIDE RECORDS SUMMARY | 2020-12-07 13:50 | CCD ---
Continuity of Care Document (CCD) Created on: 09/11/2020 Vibha Hernandez External Reference #: [id number] : [id number] Sex: Female Author Author Vibha CHUNG Organization Unknown Address [address] [facility] [address] [place] [address] Phone [phone] Care Team Providers Care Binder Selector Name Role Phone Niurka Chung DO AUTM [...] hs 30tabs Niurka Chung DO 11/10/2017 Viactiv [id number] Chewt abs 1-2 every day by mouth [...] # [id number] Given 01/26/2016 Fluvirin Virus Vaccine [id number] Given 10/19/2015 Zoster Vaccine [id number] Refused 12/27/2016 Influenza Vaccin e Quadrivalent Preser/Antibiotic [...] H/L Range Note Laboratory test finding 09/08/2020 [facility] [address] [place] [address] [phone] Cyclic Citrullinated Peptide 7 units Normal 0-1 9 1 Rheumatoid Factor Quant < 10.0 IU/mL Normal <15.0 Complete Blood Count 09/08/2020 [facility] Information Technology Account Manager: [place] [address] [phone] WBC 4.7 x10*3/UL 4.1 - 10.9 RBC [...] 2.0 - 7.8 Comprehensive Chem Profile 09/08/2020 [facility] Information Technology Account Manager: [place] [address] [phone] Glucose 117 mg/dL High 74 - 99 2 BUN 20 mg/dL High 7 - 18 [...] mL/min >60 GFR >= 60 mL/min >60 3 Lipid Profile 09/08/2020 [facility] Information Technology Account Manager: Dr Raul [place], [place] [id number] [phone] Cholesterol 169 mg/dL 131 - 200 Triglycerides 203 mg/dL High 30 - 150 HDL Cholesterol 44 mg/dL 35 - 60 LDL (Calculated) 84 CALC 50 - 159 Laboratory test finding 09/08/2020 [facility] Information Technology Account Manager: [place] [address] [phone] Thyroid Stimulating Hormone 1.40 uIU/mL 0.3 6 - 3.74 1 Negative <20 Weak positive 20 - 39 Moderate positive 40 - 59 Strong positive >59 Performed at: [facility] [id number] Information Technology Account Manager: Joseline Garcia MD, Phone: [phone] 2 100-125 mg/dL PRE-DIABET ES/FASTING >126 mg/dL DIABETES/FASTING 3 CHRONIC KIDNEY DISEASE STAGI NG PER NKF STAGE I & II GFR >= 60 NORMAL TO MILDLY DECREASED STAGE III GFR 30-59 MODERATELY DECREASED STAGE IV GFR 15-29 SEVERELY DECREASED STAGE V GFR <15 VERY LITTLE GFR LEFT ESRD GFR <15 ON ASSISTANT FIELD HOCKEY COACH Procedures Date Code Description Status 12/13/2018 [id number] Bone Mineral Density Test Comple joyce 11/23/2018 [id number] Diabetic Foot Exam Completed 11/12/2018 [id number] Colonoscopy Completed 11/09/2018 [id number] Colonoscopy Completed 10/07/2016 [id number] Mammogram Completed 11/19/2014 [id number] Mammogram Completed 10/14/2011 [id number] Mammogram Completed 05/03/2010 [id number] Colonoscopy Completed 04/14/2008 [id number] Mammogram Completed 02/20/2008 [id number] Mammogram Completed 09/11/2006 [id number] Mammogram Completed 10/21/2004 [id number] Mammogram Completed 10/13/2003 [id number] Mammogram Completed 02/25/2002 [id number] Mammogram Completed 09/22/1999 [id number] Mammogram Completed Medical Devices Description No Information [...] 10:40 am - Niurka Chung DO at [facility] 09/08/2020 - Niurka Chung DO* [...]
--- OUTSIDE RECORDS SUMMARY | 2020-12-07 13:50 | CCD | Continuity of Care Document ---
Author Author Vibha CHUNG Organization Unknown Address [address] [facility] [address] [place] [address] Phone [phone] Care Team Providers Care Art Sales Consultant Name Role Phone Niurka Chung DO AUTM [...] hs 30tabs Niurka Chung DO 11/10/2017 Viactiv [id number]-Unt-mcg Chewt abs 1-2 every day by mouth [...] # [id number] Given 01/26/2016 Fluvirin Virus Vaccine [id number] Given 10/19/2015 Zoster Vaccine [id number] Refused 12/27/2016 Influenza Vaccin e Quadrivalent Preser/Antibiotic [...] H/L Range Note Laboratory test finding 09/08/2020 [facility] [address] [place] [address] [phone] Cyclic Citrullinated Peptide Igg <pending> Rheumatoid Factor Quant <pending> Laboratory test finding 09/08/2020 [facility] [employer] Control Room Operator: [place] [address] [phone] TSH <pending> Procedures Date Code Description Status 12/13/2018 [id number] Bone Mineral Density Test Comple joyce 11/23/2018 [id number] Diabetic Foot Exam Completed 11/12/2018 [id number] Colonoscopy Completed 11/09/2018 [id number] Colonoscopy Completed 10/07/2016 [id number] Mammogram Completed 11/19/2014 [id number] Mammogram Completed 10/14/2011 [id number] Mammogram Completed 05/03/2010 [id number] Colonoscopy Completed 04/14/2008 [id number] Mammogram Completed 02/20/2008 [id number] Mammogram Completed 09/11/2006 [id number] Mammogram Completed 10/21/2004 [id number] Mammogram Completed 10/13/2003 [id number] Mammogram Completed 02/25/2002 [id number] Mammogram Completed 09/22/1999 [id number] Mammogram Completed Medical Devices Description No Information Available Encounters Description No Information Available Assessments Description No Information Available Plan of Treatment Future Appointment(s):* 03/16/2021 10:40 am - Niurka Chung DO at [facility] 03/09/2020 - Niurka Chung DO* I10 Essential (primary) hypertension * M15.9 Polyosteoarthritis, unspecified * M48.062 Spinal stenosis, lumbar region with neurogenic claudication * M48.02 Spinal stenosis, cervical region * All * New Medication:* Tylenol 8 Hour Arthritis Pain 650 mg - 1 pill every 8 hours as needed for pain Functional Status Description No Information Available Mental Status Description No Information Available Referrals Description No Information Available
--- NOTE | 2020-12-07 13:52 | REP ---
INDICATION: "pulling sensation" and pain.. COMPARISON: None. TECHNIQUE: Two views with only the AP view rendering adequate diagnostic information. FINDINGS: The AP views shows a glenohumeral dislocation inferiorly and medially which I cannot confirm either anterior or posterior on the images provided. I see no evidence of a concomitant fracture on this limited exam. IMPRESSION: Glenohumeral dislocation as described above. <Electronically signed by Tyson Wells > 12/07/20 [id number]
--- NOTE | 2020-12-07 13:54 | REP ---
INDICATION: pain. No history of trauma COMPARISON: None TECHNIQUE: Three views FINDINGS: Three limited views show no evidence of an acute fracture fracture or joint effusion. IMPRESSION: No evidence of an acute abnormality. <Electronically signed by Tyson Wells > 12/07/20 [id number]
--- NOTE | 2020-12-07 14:19 | REP ---
INDICATION: we will call, dislocated. COMPARISON: Pre reduction exam earlier today TECHNIQUE: Post reduction AP view FINDINGS: The glenohumeral relationship now appears to be within normal limits. The previously identified glenohumeral dislocation has been satisfactorily reduced. Single limited AP view shows no evidence of a fracture. IMPRESSION: Status post reduction as described above <Electronically signed by Tyson Wells > 12/07/20 5227
[2020-12-07 15:30] VITALS: BP 128/60
[2020-12-07] MEDS ORDERED: KETOROLAC TROMETHAMINE 10 MG TAB PO ONE (15:35)
== END 2020-12-07 16:14 | disposition home or self-care (01) ==
LOC: EDBD 12:14 → M ED 12:14
DX: S43.004A Unspecified dislocation of right shoulder joint, initial encounter (principal); W01.0XXA Fall on same level from slipping, tripping and stumbling without subsequent striking against object, initial encounter; Y92.099 Unspecified place in other non-institutional residence as the place of occurrence of the external cause; Y93.9 Activity, unspecified; Y99.9 Unspecified external cause status; E78.5 Hyperlipidemia, unspecified; K21.9 Gastro-esophageal reflux disease without esophagitis; G43.909 Migraine, unspecified, not intractable, without status migrainosus; Z79.899 Other long term (current) drug therapy; Z88.2 Allergy status to sulfonamides
CPT/HCPCS: 23655; 73020; 73030; 73080; 93041; 94760; 96374; 99285; J2405

== ENCOUNTER → 2021-02-25 | Outpatient (CLI) | payer BC, OTHER | LOC: M WHC 09:46 | PROVIDERS: ATTEND Internal Medicine | DX: Z12.31 Encounter for screening mammogram for malignant neoplasm of breast (principal); Z80.3 Family history of malignant neoplasm of breast; Z80.0 Family history of malignant neoplasm of digestive organs ==

== ENCOUNTER → 2021-04-01 | Outpatient (CLI) | payer BC ==
[~2021-04-01] MED LIST changes: +LOSA50TA28 PO; -LOSA50TA88 PO; -PHEN15CA PO; +PHEN15CA6 PO
== END ==
LOC: M RAD 13:59
PROVIDERS: ATTEND Internal Medicine
DX: R42 Dizziness and giddiness (principal)

== ENCOUNTER → 2022-01-10 | Outpatient (REF) | payer OTHER, MEDICARE, BC | LOC: M LAB REF 16:35 | PROVIDERS: ATTEND Internal Medicine | DX: N39.0 Urinary tract infection, site not specified (principal) ==

== ENCOUNTER → 2022-02-07 | Outpatient (REF) | payer MEDICARE, BC | LOC: M LAB REF 12:18 | PROVIDERS: ATTEND Internal Medicine | DX: R39.15 Urgency of urination (principal) ==

== ENCOUNTER → 2022-03-23 | Outpatient (CLI) | payer MEDICARE, BC | LOC: M WHC 08:49 | PROVIDERS: ATTEND Internal Medicine | DX: Z12.31 Encounter for screening mammogram for malignant neoplasm of breast (principal) ==

== ENCOUNTER → 2022-03-29 | Outpatient (CLI) | payer OTHER, MEDICARE | LOC: M PLAIMG 08:03 | PROVIDERS: ATTEND Nurse Practitioner Family | DX: M50.11 Cervical disc disorder with radiculopathy, high cervical region (principal); Z98.1 Arthrodesis status ==

== ENCOUNTER → 2022-04-20 | Outpatient (CLI) | payer MEDICARE, BC | LOC: M RAD 09:17 | PROVIDERS: ATTEND Internal Medicine | DX: R31.9 Hematuria, unspecified (principal); N95.9 Unspecified menopausal and perimenopausal disorder; N85.4 Malposition of uterus; R93.89 Abnormal findings on diagnostic imaging of other specified body structures ==

== ENCOUNTER → 2022-05-06 | Outpatient (REF) | payer MEDICARE, BC | LOC: M PLALAB 16:25 | PROVIDERS: ATTEND Nurse Practitioner Family | DX: N95.0 Postmenopausal bleeding (principal) ==

== ENCOUNTER 2022-07-25 06:40 | Day surgery (SDC) | payer MEDICARE, BC ==
[~2022-07-25] VITALS: Ht 170.2 cm; Wt 90.7 kg
[~2022-07-25 06:40] MED LIST changes: +ACET325C5; +AZEL1SPR3; +NS 1,000 ML IV ONE
[2022-07-25] MEDS ORDERED: propofoL 200 MG/20 ML VIAL As Ordered ONE (06:58)
[2022-07-25] MEDS ORDERED: LIDOCAINE 2% 100MG/5ML SDV (FOR ANES.) As Ordered ONE (06:58)
[2022-07-25] MEDS ORDERED: fentaNYL 100 MCG/2 ML INJECTION As Ordered ONE (07:40)
[2022-07-25 08:58] VITALS: BP 142/56
== END 2022-07-25 09:00 | disposition home or self-care (01) ==
LOC: M OPP 06:40
PROVIDERS: ATTEND Internal Medicine Gastroenterology
DX: Z86.010 Personal history of colon polyps (principal); K64.0 First degree hemorrhoids; K57.30 Diverticulosis of large intestine without perforation or abscess without bleeding; K22.89 Other specified disease of esophagus; I10 Essential (primary) hypertension; E78.5 Hyperlipidemia, unspecified; M19.90 Unspecified osteoarthritis, unspecified site; G43.909 Migraine, unspecified, not intractable, without status migrainosus; G47.30 Sleep apnea, unspecified; Z88.2 Allergy status to sulfonamides; Z79.899 Other long term (current) drug therapy
CPT/HCPCS: 43239; 45385; 88305; J3010

== ENCOUNTER 2022-08-09 10:38 | Day surgery (SDC) | payer MEDICARE ==
[~2022-08-09] VITALS: Ht 170.2 cm; Wt 91.2 kg
[~2022-08-09 10:38] MED LIST changes: -NS 1,000 ML IV ONE
[2022-08-09] MEDS ORDERED: LR 1,000 ML IV SCH ×2 (11:10→14:45)
[2022-08-09 11:13] LABS: HEMATOCRIT 39.4 % (36.0-47.0); HEMOGLOBIN 12.7 g/dl (12.0-15.5); MEAN CORPUSCULAR HEMOGLOBIN 29.4 pg (27.0-33.0); MEAN CORPUSCULAR HGB CONC 32.2 g/dl (32.0-36.5); MEAN CORPUSCULAR VOLUME 91.2 fl (80.0-96.0); PLATELET COUNT, AUTOMATED 265 10^3/uL (150-450); RED BLOOD COUNT 4.32 10^6/uL (4.00-5.40); WHITE BLOOD COUNT 6.7 10^3/uL (4.0-10.0)
[2022-08-09] MEDS ORDERED: KETOROLAC 60MG 2ML VIAL As Ordered ONE (12:38)
[2022-08-09] MEDS ORDERED: fentaNYL 100 MCG/2 ML INJECTION As Ordered ONE (12:38)
[2022-08-09] MEDS ORDERED: MIDAZOLAM INJ 2MG/2ML VIAL As Ordered ONE (12:38)
[2022-08-09] MEDS ORDERED: LIDOCAINE 2% 100MG/5ML SDV (FOR ANES.) As Ordered ONE (12:39)
[2022-08-09] MEDS ORDERED: ONDANSETRON 4MG 2ML VIAL As Ordered ONE (12:39)
[2022-08-09] MEDS ORDERED: ACETAMINOPHEN 1000MG 100ML IV BAG As Ordered ONE (12:39)
[2022-08-09] MEDS ORDERED: propofoL 200 MG/20 ML VIAL As Ordered ONE (12:39)
[2022-08-09] MEDS ORDERED: ONDANSETRON 4MG 2ML VIAL IV PRN (14:20)
[2022-08-09] MEDS ORDERED: fentaNYL 100 MCG/2 ML INJECTION IV PRN (14:20)
[2022-08-09] MEDS ORDERED: oxyCODONE 5MG TAB PO PRN (14:20)
[2022-08-09] MEDS ORDERED: HYDROMORPHONE HCL 0.5 MG/ 0.5 ML SYRINGE IV PRN (14:20)
[2022-08-09 14:59] VITALS: BP 125/65; TEMP 98.4; O2SAT 96
[2022-08-09] MEDS ORDERED: ACETAMINOPHEN 500 MG TAB PO ONE (15:00)
== END 2022-08-09 15:25 | disposition home or self-care (01) ==
LOC: M SDC 10:38
PROVIDERS: ATTEND Specialist
DX: N84.0 Polyp of corpus uteri (principal); I10 Essential (primary) hypertension; E78.5 Hyperlipidemia, unspecified; R51.9 Headache, unspecified; G43.909 Migraine, unspecified, not intractable, without status migrainosus; G47.33 Obstructive sleep apnea (adult) (pediatric); K21.9 Gastro-esophageal reflux disease without esophagitis; Z88.2 Allergy status to sulfonamides; Z79.899 Other long term (current) drug therapy
CPT/HCPCS: 36415; 58558; 85027; 88305; J0131; J1100; J1885; J2250; J2405; J3010

== ENCOUNTER → 2023-02-23 | Outpatient (CLI) | payer OTHER, MEDICARE, BC ==
[~2023-02-23] MED LIST changes: +PROHANCE 279.3MG/ML 15ML VIAL As Ordered ONE; +PROHANCE 279.3MG/ML 5ML VIAL As Ordered ONE
== END ==
LOC: M RAD 08:55
PROVIDERS: ATTEND Physical Medicine & Rehabilitation
DX: M25.521 Pain in right elbow (principal); S53.401A Unspecified sprain of right elbow, initial encounter; X58.XXXA Exposure to other specified factors, initial encounter; Y92.9 Unspecified place or not applicable; Y93.9 Activity, unspecified; Y99.9 Unspecified external cause status
CPT/HCPCS: 73223; A9576

== ENCOUNTER → 2023-04-17 | Outpatient (CLI) | payer MEDICARE, BC ==
[~2023-04-17] MED LIST changes: -PROHANCE 279.3MG/ML 15ML VIAL As Ordered ONE; -PROHANCE 279.3MG/ML 5ML VIAL As Ordered ONE
[2023-04-17 11:36] LABS: BASO % 0.6 % (0.0-1.0); EOS # 0.1 10^3/uL (0.0-0.5); EOS % 1.7 % (0.0-3.0); HEMATOCRIT 38.9 % (36.0-47.0); HEMOGLOBIN 12.7 g/dl (12.0-15.5); LYMPH # 1.7 10^3/uL (1.5-5.0); LYMPH % 26.7 % (24.0-44.0); MEAN CORPUSCULAR HEMOGLOBIN 29.8 pg (27.0-33.0); MEAN CORPUSCULAR HGB CONC 32.6 g/dl (32.0-36.5); MEAN CORPUSCULAR VOLUME 91.3 fl (80.0-96.0); MONO # 0.7 10^3/uL (0.0-0.8); MONO % 11.5 % (2.0-8.0); NEUTROPHILS # 3.8 10^3/uL (1.5-8.5); PLATELET COUNT, AUTOMATED 283 10^3/uL (150-450); RED BLOOD COUNT 4.26 10^6/uL (4.00-5.40); WHITE BLOOD COUNT 6.4 10^3/uL (4.0-10.0)
[2023-04-17 15:50] LABS: C REACTIVE PROTEIN QUANTITATIV < 0.40 MG/DL (<1.0)
[2023-04-17 15:52] LABS: ALBUMIN 3.6 G/DL (3.2-5.2); ALKALINE PHOSPHATASE 75 U/L (46-116); ALT/SGPT 23 U/L (7.0-40); AST/SGOT 21 U/L (<34); BLOOD UREA NITROGEN 19 MG/DL (9-23); CARBON DIOXIDE LEVEL 30 MMOL/L (20-31); CHLORIDE LEVEL 109 MMOL/L (98-107); GLOMERULAR FILTRATION RATE > 60.0 (>45); GLUCOSE, FASTING 87 MG/DL (74-106); SODIUM LEVEL 141 MMOL/L (136-145); TOTAL PROTEIN 6.7 G/DL (5.7-8.2)
== END ==
LOC: M LAB 10:40
PROVIDERS: ATTEND Orthopaedic Surgery
DX: M25.519 Pain in unspecified shoulder (principal); G89.29 Other chronic pain

== ENCOUNTER → 2023-06-12 | Outpatient (CLI) | payer MEDICARE, BC | LOC: M WHC 07:58 | PROVIDERS: ATTEND Internal Medicine | DX: Z12.31 Encounter for screening mammogram for malignant neoplasm of breast (principal); R92.323 Mammographic fibroglandular density, bilateral breasts ==

== ENCOUNTER → 2023-09-19 | Outpatient (CLI) | payer OTHER, MEDICARE, BC ==
[~2023-09-19] MED LIST changes: +PROHANCE 279.3MG/ML 15ML VIAL ONE; +PROHANCE 279.3MG/ML 5ML VIAL ONE
== END ==
LOC: M PLAIMG 08:05
PROVIDERS: ATTEND Physical Medicine & Rehabilitation
DX: M47.897 Other spondylosis, lumbosacral region (principal); Z98.1 Arthrodesis status; M48.061 Spinal stenosis, lumbar region without neurogenic claudication
CPT/HCPCS: 72158; A9576

== ENCOUNTER → 2023-09-25 | Outpatient (CLI) | payer MEDICARE, BC ==
[~2023-09-25] MED LIST changes: -PROHANCE 279.3MG/ML 15ML VIAL ONE; -PROHANCE 279.3MG/ML 5ML VIAL ONE
== END ==
LOC: M WHC 08:53
PROVIDERS: ATTEND Internal Medicine
DX: M85.89 Other specified disorders of bone density and structure, multiple sites (principal)

== ENCOUNTER → 2024-01-03 | Outpatient (CLI) | payer MEDICARE, BC ==
[~2024-01-03] MED LIST changes: +GABA-1172 PO; -GABA-282 PO
== END ==
LOC: M RAD 14:44
PROVIDERS: ATTEND Nurse Practitioner
DX: R22.1 Localized swelling, mass and lump, neck (principal)

== ENCOUNTER → 2024-01-25 | Outpatient (CLI) | payer MEDICARE, BC ==
[2024-01-25 09:33] LABS: PLATELET COUNT, AUTOMATED 247 10^3/uL (150-450)
[2024-01-25 09:53] LABS: INR 1.02; PARTIAL THROMBOPLASTIN TIME 31.1 SECONDS (24.8-34.2); PROTHROMBIN TIME 13.7 SECONDS (12.5-14.5)
== END ==
LOC: M LAB 09:04
PROVIDERS: ATTEND Physical Medicine & Rehabilitation
DX: Z01.812 Encounter for preprocedural laboratory examination (principal)

== ENCOUNTER → 2024-01-25 | Outpatient (CLI) | payer MEDICARE, BC ==
[2024-01-25 09:33] LABS: BASO % 0.6 % (0.0-1.0); EOS # 0.1 10^3/uL (0.0-0.5); EOS % 1.3 % (0.0-3.0); HEMATOCRIT 40.4 % (36.0-47.0); HEMOGLOBIN 12.9 g/dl (12.0-15.5); LYMPH # 1.3 10^3/uL (1.5-5.0); LYMPH % 24.7 % (24.0-44.0); MEAN CORPUSCULAR HEMOGLOBIN 29.5 pg (27.0-33.0); MEAN CORPUSCULAR HGB CONC 31.9 g/dl (32.0-36.5); MEAN CORPUSCULAR VOLUME 92.4 fl (80.0-96.0); MONO # 0.6 10^3/uL (0.0-0.8); MONO % 10.9 % (2.0-8.0); NEUTROPHILS # 3.3 10^3/uL (1.5-8.5); NEUTROPHILS % 62.1 % (36.0-66.0); PLATELET COUNT, AUTOMATED 235 10^3/uL (150-450); RED BLOOD COUNT 4.37 10^6/uL (4.00-5.40); WHITE BLOOD COUNT 5.3 10^3/uL (4.0-10.0)
[2024-01-25 10:05] LABS: ALBUMIN 3.6 G/DL (3.2-5.2); ALKALINE PHOSPHATASE 86 U/L (35-104); ALT/SGPT 24 U/L (7.0-40); AST/SGOT 22 U/L (<34); BILIRUBIN,TOTAL 1.4 MG/DL (0.3-1.2); BLOOD UREA NITROGEN 19 MG/DL (9-23); CALCIUM LEVEL 9.6 MG/DL (8.3-10.6); CARBON DIOXIDE LEVEL 29 MMOL/L (20-31); CHLORIDE LEVEL 107 MMOL/L (98-107); CHOLESTEROL LEVEL 156 MG/DL (<200); CHOLESTEROL RISK RATIO 4.08 (<5); CREATININE FOR GFR 0.74 MG/DL (0.55-1.30); GLOMERULAR FILTRATION RATE > 60.0 (>45); GLUCOSE, FASTING 100 MG/DL (74-106); HDL CHOLESTEROL 38.2 MG/DL (>40); LDL CHOLESTEROL 96.4 MG/DL (<100); NON-HDL-C 117.8 MG/DL; POTASSIUM SERUM 4.2 MMOL/L (3.5-5.1); SODIUM LEVEL 142 MMOL/L (136-145); TOTAL PROTEIN 6.9 G/DL (5.7-8.2); TRIGLYCERIDES LEVEL 107 MG/DL (<150)
== END ==
LOC: M LAB 09:06
PROVIDERS: ATTEND Internal Medicine
DX: E78.5 Hyperlipidemia, unspecified (principal); I10 Essential (primary) hypertension; Z01.812 Encounter for preprocedural laboratory examination

== ENCOUNTER → 2024-03-21 | Outpatient (CLI) | payer MEDICARE, BC | LOC: M RAD 07:41 | PROVIDERS: ATTEND Internal Medicine | DX: R10.11 Right upper quadrant pain (principal); K76.0 Fatty (change of) liver, not elsewhere classified ==

== ENCOUNTER → 2024-09-18 | Outpatient (CLI) | payer MEDICARE, BC | LOC: M WHC 08:10 | PROVIDERS: ATTEND Advanced Practice Midwife | DX: Z12.31 Encounter for screening mammogram for malignant neoplasm of breast (principal); R92.323 Mammographic fibroglandular density, bilateral breasts ==

== ENCOUNTER → 2024-12-23 | Outpatient (CLI) | payer MEDICARE, BC | LOC: M WUC 08:59 | PROVIDERS: ATTEND Internal Medicine | DX: M25.551 Pain in right hip (principal); M16.11 Unilateral primary osteoarthritis, right hip ==

== ENCOUNTER → 2025-01-08 | Outpatient (REF) | payer MEDICARE, BC ==
[2025-01-08 11:12] LABS: PLATELET COUNT, AUTOMATED 280 10^3/uL (150-450)
[2025-01-08 11:54] LABS: INR 0.97
== END ==
LOC: M LABDRAWC 11:06
PROVIDERS: ATTEND Physical Medicine & Rehabilitation
DX: Z01.818 Encounter for other preprocedural examination (principal)

== ENCOUNTER → 2025-02-04 | Outpatient (CLI) | payer MEDICARE, BC ==
[~2025-02-04] MED LIST changes: +ISOVUE-370 76% 100 ML VIAL ONE
== END ==
LOC: M PLAIMG 09:46
PROVIDERS: ATTEND Internal Medicine
DX: K42.0 Umbilical hernia with obstruction, without gangrene (principal); R10.816 Epigastric abdominal tenderness; K44.9 Diaphragmatic hernia without obstruction or gangrene; K76.0 Fatty (change of) liver, not elsewhere classified; N28.1 Cyst of kidney, acquired; K57.30 Diverticulosis of large intestine without perforation or abscess without bleeding; R93.41 Abnormal radiologic findings on diagnostic imaging of renal pelvis, ureter, or bladder; M16.0 Bilateral primary osteoarthritis of hip
CPT/HCPCS: 74177; Q9967